=== PATIENT | female | born 1965 | race Caucasian/White ===

== ENCOUNTER → 2018-01-15 | Outpatient (CLI) | payer OTHER ==
--- NOTE | 2018-01-20 09:54 | MM ---
Reason for exam: screening (asymptomatic). Last mammogram was performed 18 years and 9 months ago. History: Patient is postmenopausal. Physical Findings: A clinical breast exam by your physician is recommended on an annual basis and results should be correlated with mammographic findings. MG Screening Mammo w CAD Bilateral CC and MLO view(s) were taken. No prior studies available for comparison. The breast tissue is almost entirely fat. Bilateral nipple rings. No significant changes when compared with prior studies. ASSESSMENT: Benign, BI-RAD 2 RECOMMENDATION: Routine screening mammogram of both breasts in 1 year.
== END | disposition home or self-care (01) ==
LOC: RADMAMWWP 13:08
PROVIDERS: ATTEND Family Medicine
DX: Z12.31 Encounter for screening mammogram for malignant neoplasm of breast (principal)
CPT/HCPCS: 77067

== ENCOUNTER → 2018-06-23 | Outpatient (CLI) | payer OTHER ==
--- NOTE | 2018-06-23 10:41 | MR ---
EXAMINATION TYPE: MR lumbar spine wo con DATE OF EXAM: 06/23/2018 COMPARISON: None HISTORY: Low back pain TECHNIQUE: Multiplanar, multisequence images of the lumbar spine were acquired. FINDINGS: There is a grade 1 anterolisthesis of L4 on L5. The remainder of the vertebral bodies maint ain normal alignment. Bone marrow signal is within normal limits other than degenerative endplate stanislav nges of the superior endplate of L2 (Modic type II) and a T1/T2 hyperintense small vertebral body hem angioma of L4, benign finding. Conus medullaris is unremarkable terminating at L1. Multilevel disc de siccation is seen. Multifocal left-sided cortical renal retraction and thickening is seen, likely seq uela of prior injury. Multiple left sacral perineural cysts are incidentally seen. L1-L2: Disc desiccation is seen without focal disc bulge or herniation. No neural foraminal narrowing or spinal canal stenosis. L2-L3: Disc desiccation is seen without focal disc bulge or herniation. No neural foraminal narrowing or spinal canal stenosis. L3-L4: There is a broad-based disc bulge and mild facet arthropathy resulting in minimal bilateral ne ural foraminal narrowing. L4-L5: There is disc uncovering and a broad-based disc bulge that is right eccentric resulting in mil d to moderate right neuroforaminal narrowing. No significant spinal canal stenosis or left neural for aminal narrowing. Facet arthropathy is seen at this level contributing to the above findings. L5-S1: There is a left foraminal disc herniation/protrusion moderately narrowing the left neural fora men and abutting the exiting L5 nerve root. There is no significant right neural foraminal narrowing or spinal canal stenosis. Right paracentral annular tear is also seen. IMPRESSION: 1. Left foraminal disc herniation at L5-S1 moderately narrowing the left neural foramen and abutting the exiting L5 nerve root. 2. Grade 1 anterolisthesis of L4 on L5 in combination with a right eccentric disc bulge create mild t o moderate right neural foraminal narrowing. 3. Mild multilevel degenerative disc disease in the remainder the lumbar spine with neural foraminal narrowing as described above.
== END | disposition home or self-care (01) ==
LOC: RADMRIMAIN 09:39
PROVIDERS: ATTEND Family Medicine
DX: M99.73 Connective tissue and disc stenosis of intervertebral foramina of lumbar region (principal); M51.27 Other intervertebral disc displacement, lumbosacral region; M43.16 Spondylolisthesis, lumbar region; M51.36 Other intervertebral disc degeneration, lumbar region
CPT/HCPCS: 72148

== ENCOUNTER → 2018-10-29 | Outpatient (CLI) | payer OTHER ==
--- NOTE | 2018-10-29 15:52 | CT ---
EXAMINATION TYPE: CT chest w con DATE OF EXAM: 10/29/2018 COMPARISON: None HISTORY: Lt Hilar Density CT DLP: 656 mGycm Automated exposure control for dose reduction was used. CONTRAST: CT scan of the chest is performed with IV Contrast, patient injected with 100 mL of Isovue 300. FINDINGS: LUNGS: The lungs are grossly clear, there is no concerning parenchymal mass or nodule identified. T here is no pleural effusion or pneumothorax seen. The tracheobronchial tree is patent. MEDIASTINUM: Subcentimeter AP window lymph node. Precarinal lymph node measures 1 cm in short axis. S everal subcentimeter hilar lymph nodes measuring 8.6 mm on the left and approximately 8 mm on the rig ht. Thoracic aorta is of normal caliber. The heart is not enlarged. UPPER ABDOMEN: Focal parenchymal scarring left kidney. Fatty liver. Cholecystectomy clips. Small hiat al hernia. OTHER: No additional significant abnormality is seen. IMPRESSION: 1. No evidence for pulmonary mass or infiltrate at this time. Subcentimeter lymph nodes as discussed.
== END | disposition home or self-care (01) ==
LOC: RADCTMAIN 14:08
PROVIDERS: ATTEND Family Medicine
DX: R91.8 Other nonspecific abnormal finding of lung field (principal)
CPT/HCPCS: 71260; Q9967

== ENCOUNTER → 2019-06-11 | Outpatient (CLI) | payer OTHER ==
--- NOTE | 2019-06-15 08:35 | MM ---
Reason for exam: screening (asymptomatic). Last mammogram was performed 1 year and 5 months ago. History: Patient is postmenopausal. Physical Findings: A clinical breast exam by your physician is recommended on an annual basis and results should be correlated with mammographic findings. MG Screening Mammo w CAD Bilateral CC and MLO view(s) were taken. Prior study comparison: January 15, 2018, bilateral MG screening mammo w CAD. April 13, 1999, bilateral screening mammogram. There are scattered fibroglandular densities. Bilateral nipple rings. No significant changes when compared with prior studies. ASSESSMENT: Negative, BI-RAD 1 RECOMMENDATION: Routine screening mammogram of both breasts in 1 year.
== END | disposition home or self-care (01) ==
LOC: RADMAMWWP 16:37
PROVIDERS: ATTEND Family Medicine
DX: Z12.31 Encounter for screening mammogram for malignant neoplasm of breast (principal)
CPT/HCPCS: 77067

== ENCOUNTER → 2022-03-26 | Outpatient (CLI) | payer OTHER ==
--- NOTE | 2022-03-26 15:17 | XR ---
EXAMINATION TYPE: XR Hip Complete LT DATE OF EXAM: 03/26/2022 CLINICAL HISTORY: pain TECHNIQUE: AP and frogleg views of the left hip are obtained. COMPARISON: None. FINDINGS: There is no acute fracture/dislocation evident. The joint space appears within normal li mits. The overlying soft tissue appears unremarkable. IMPRESSION: 1. There is no acute fracture or dislocation.ICD 10 NO FRACTURE, INITIAL EVALUATION
== END | disposition home or self-care (01) ==
LOC: RADXRMAIN 14:37
PROVIDERS: ATTEND Internal Medicine
DX: M25.552 Pain in left hip (principal)
CPT/HCPCS: 73502

== ENCOUNTER → 2022-04-10 | Outpatient (CLI) | payer OTHER ==
--- NOTE | 2022-04-10 21:30 | US ---
EXAMINATION TYPE: US venous doppler duplex LE LT DATE OF EXAM: 04/10/2022 2:18 PM COMPARISON: NONE CLINICAL HISTORY: 57-year-old female M79.662 PAIN IN L LEG,R22.42 SWELLING/MASS. Left leg pain x 1 mo nth, patient on blood thinners SIDE PERFORMED: Left TECHNIQUE: The lower extremity deep venous system is examined utilizing real time linear array sonog sarah with graded compression, doppler sonography and color-flow sonography. FINDINGS: VESSELS IMAGED: Common Femoral Vein Deep Femoral Vein Greater Saphenous Vein * Femoral Vein Popliteal Vein Small Saphenous Vein * Proximal Calf Veins (* superficial vessels) Left Leg: Appears negative for DVT IMPRESSION: No evidence for DVT within the left lower extremity imaged from the groin to the upper calf.
== END | disposition home or self-care (01) ==
LOC: RADUSWWP 13:45
PROVIDERS: ATTEND Internal Medicine
DX: R22.42 Localized swelling, mass and lump, left lower limb (principal); Z79.01 Long term (current) use of anticoagulants

== ENCOUNTER → 2022-10-31 | Outpatient (CLI) | payer OTHER ==
--- NOTE | 2022-11-01 19:21 | MM ---
Reason for Exam: Screening (asymptomatic). Last mammogram was performed 3 year(s) and 4 month(s) ago. Patient History: Menarche at age 11. First Full-Term at age 23. Hysterectomy at age 37. Postmenopausal. Patient has history of breast feeding. Risk Values: Kathleen 5 year model risk: 1.2%. NCI Lifetime model risk: 6.9%. Prior Study Comparison: 04/13/1999 Bilateral Screening Mammogram, [facility]. 01/15/2018 Bilateral Screening Mammogram, [facility]. 06/11/2019 Bilateral Screening Mammogram, [facility]. Tissue Density: The breast tissue is almost entirely fat. Findings: Analyzed By CAD. There is no suspicious group of microcalcifications or new suspicious mass in either breast. Overall Assessment: Negative, BI-RAD 1 Management: Screening Mammogram of both breasts in 1 year. 1. Patient should continue monthly self breast exams. 2. A clinical breast exam by your physician is recommended on an annual basis. 3. This exam should not preclude additional follow-up of suspicious palpable abnormalities. Electronically signed and approved by: Rebecca Del Cid M.D. Radiologist
== END | disposition home or self-care (01) ==
LOC: RADMAMWWP 15:49
PROVIDERS: ATTEND Family Medicine
DX: Z12.31 Encounter for screening mammogram for malignant neoplasm of breast (principal); Z78.0 Asymptomatic menopausal state
CPT/HCPCS: 77063; 77067

== ENCOUNTER 2022-11-12 18:35 | Emergency (ER) | payer OTHER ==
[2022-11-12] MEDS ORDERED: LORazepam 2 MG/ML INJ IV STA (18:37)
[2022-11-12 18:46] VITALS: TEMP 97.9
[2022-11-12] MEDS ORDERED: ASPIRIN 81 MG PO STA (18:57)
[2022-11-12] MEDS ORDERED: ONDANSETRON 4 MG/2 ML VIAL IVP STA (18:58)
[2022-11-12 19:22] LABS: Basophils # (A) 0.1 k/uL (0-0.2); Basophils % (A) 1 %; Eosinophils # (A) 0.1 k/uL (0-0.7); Eosinophils % (A) 2 %; HCT 44.8 % (34.0-46.0); HGB 15.8 gm/dL (11.4-16.0); Lymphocytes # (A) 2.2 k/uL (1.0-4.8); Lymphocytes % (A) 36 %; MCH 32.3 pg (25.0-35.0); MCHC 35.3 g/dL (31.0-37.0); MCV 91.4 fL (80.0-100.0); Mean Platelet Volume 10.3; Monocytes # (A) 0.4 k/uL (0-1.0); Monocytes % (A) 6 %; Neutrophils # (A) 3.2 k/uL (1.3-7.7); Neutrophils % (A) 52 %; Platelet Count 195 k/uL (150-450); RDW 12.4 % (11.5-15.5); WBC 6.1 k/uL (3.8-10.6)
[2022-11-12] MEDS ORDERED: ACETAMINOPHEN TAB 500 MG TAB PO STA (19:27)
[2022-11-12 19:31] LABS: Albumin 4.1 g/dL (3.5-5.0); Calcium 9.2 mg/dL (8.4-10.2); Magnesium 1.8 mg/dL (1.6-2.3); Potassium 3.8 mmol/L (3.5-5.1); Total Protein 7.1 g/dL (6.3-8.2)
[2022-11-12 19:33] LABS: INR 1.6 (<1.2); Partial Thromboplastin Time 30.4 sec (22.0-30.0); Prothrombin Time 15.8 sec (9.0-12.0)
[2022-11-12 19:37] VITALS: BP 157/94; PULSE 73; RESP 18
--- NOTE | 2022-11-12 19:43 | XR ---
EXAMINATION TYPE: XR chest 2V DATE OF EXAM: 11/12/2022 7:22 PM COMPARISON: CT chest 10/21/2013 TECHNIQUE: XR chest 2V Frontal and lateral views of the chest. CLINICAL INDICATION:Female, 57 years old with history of Chest Pain; FINDINGS: Low penetration film. Lungs/Pleura: There is no evidence of pleural effusion, focal consolidation, or pneumothorax. Pulmonary vascularity: Unremarkable. Heart/mediastinum: Cardiomediastinal silhouette is unremarkable. Musculoskeletal: No acute osseous pathology. IMPRESSION: No acute cardiopulmonary disease/process.
--- NOTE | 2022-11-12 20:52 | ED ---
General Adult HPI - General Chief complaint: Chest Pain Stated complaint: Chest Pain Time Seen by Provider: 11/12/22 18:40 Source: EMS, RN notes reviewed, old records reviewed Mode of arrival: EMS Limitations: no limitations - History of Present Illness Initial comments: Patient is a 57-year-old female with past medical history remarkable for atrial fibrillation, hypertension on Coumadin who presents emergency Department complaining of chest pain. It occurred approximately an hour and a half prior to arrival. Substernal and left-sided. She thought it would go away on its own but it did not which/called EMS. Discussed a sharp, achy pain. Did not radiate anywhere else. Denies any other associated symptoms including shortness of breath, abdominal pain, nausea, vomiting. States she is not diaphoretic. When EMS arrived, they discovered that she was tachycardic in the 160s to 180s. There was uncertain if it was A. fib or SVT and they did attempt vagal maneuvers which converted the patient to normal sinus rhythm. Patient's symptoms reso lved. She has been asymptomatic since. She currently denies any shortness of breath, chest pain but does endorse slight nausea. Denies any diarrhea. Denies any sick contacts. Denies any lower extremity edema. States she is compliant with medications. Presents for further evaluation at this time. - Related Data Home Medications Medication Instructions Recorded Confirmed Flecainide [Tambocor] 50 mg PO BID 11/12/22 11/12/22 Metoprolol Tartrate [Lopressor] 100 mg PO BID 11/12/22 11/12/22 Warfarin [Coumadin] 7.5 mg PO PC-SUPPER 11/12/22 11/12/22 Allergies Allergy/AdvReac Type Severity Reaction Status Date / Time No Known Allergies Allergy Unverified 11/12/22 19:14 Review of Systems ROS Statement: Those systems with pertinent positive or pertinent negative responses have been documented in the HPI. Review of Systems: CONST: Denies fever EYES: Denies blurry vision ENT: Denies nasal congestion C/V: Denies Chest pain RESP: Denies shortness of breath GI: Denies abdominal pain : Denies dysuria SKIN: Denies rash. MSK: Denies joint pain. NEURO: Denies headache ROS Other: All systems not noted in ROS Statement are negative. Past Medical History Past Medical History: Atrial Fibrillation, Hypertension History of Any Multi-Drug Resistant Organisms: None Reported Past Surgical History: Cholecystectomy, Hysterectomy, Tonsillectomy Smoking Status: Former smoker Past Alcohol Use History: None Reported Past Drug Use History: None Reported General Exam - General Exam Comments Initial Comments: General: Appears in no acute distress. HEAD: Normal with no signs of head trauma. EYES: PERRLA, EOMI, conjunctiva normal, no discharge. ENT: Hearing grossly intact, normal oropharynx. RESPIRATORY: Clear breath sounds bilaterally. No wheezes, rales, or rhonchi. C/V: Regular rate and rhythm. S1 and S2 auscultated, no edema, peripheral pulses 2+ and intact throughout ABD: Abd is soft, nontender, nondistended EXT: Normal range of motion, no obvious deformity SKIN: No rashes or lesions observed on exposed skin. NEURO: Alert and oriented 4. Limitations: no limitations Course Vital Signs 11/12/22 11/12/22 18:38 19:35 Temperature 97.9 F Pulse Rate 74 73 Respiratory 20 18 Rate Blood Pressure 164/107 157/94 O2 Sat by Pulse 95 95 Oximetry Medical Decision Making - Medical Decision Making Based on the patient's presentation and physical exam, I'm concerned for possible cardiopulmonary etiology for her current symptoms. Cannot rule out an episode of atrial fibrillation or SVT prior to arrival. ACS at this time either. She currently is relatively asymptomatic. I did discuss this with the patient and she was in agreement with the workup. We will obtain cardiac labs, EKG, chest x-ray. She'll be given 324 millions of aspirin in addition to 4 mg of Zofran. She was in agreement with this plan. Vital signs are within acceptable limits. She appears to be in sinus rhythm at this time. EKG shows no signs of acute ischemia. Normal sinus rhythm. No prior EKG for comparison. Chest x-ray as interpreted by myself reveals no evidence of acute cardio pulmonary process. No infiltrate. Patient's laboratory studies are remarkable for an undetectable troponin. Mildly subtherapeutic INR of 1.6. Remainder the labs are unremarkable. Covid is negative. On reevaluation, patient remains asymptomatic. We did discuss her workup. Patient's heart score is moderate at 4. I did recommend that we admit her to the hospital for cardiac monitoring. Patient declines admission at this time. She will sign out AGAINST MEDICAL ADVICE.The patient was apprised of the potential risks of leaving the hospital AGAINST MEDICAL ADVICE, including serious complications, permanent disability, and . At the time of my interview the patient, the patient was alert, oriented, and capable. Patient signed AMA form, which was witnessed and signed by nursing staff, and placed in patient's chart. I urged the patient to return to the hospital as soon as possible to complete evaluation and treatment. - Lab Data Result diagrams: 11/12/22 19:03 11/12/22 19:03 Lab Results 11/12/22 11/12/22 11/12/22 Range/Units 19: 19: 19:03 WBC 6.1 (3.8-10.6) k/uL RBC 4.90 (3.80-5.40) m/uL Hgb 15.8 (11.4-16.0) gm/dL Hct 44.8 (34.0-46.0) % MCV 91.4 (80.0-100.0) fL MCH 32.3 (25.0-35.0) pg MCHC 35.3 (31.0-37.0) g/dL RDW 12.4 (11.5-15.5) % Plt Count 195 (150-450) k/uL MPV 10.3 Neutrophils % 52 % Lymphocytes % 36 % Monocytes % 6 % Eosinophils % 2 % Basophils % 1 % Neutrophils # 3.2 (1.3-7.7) k/uL Lymphocytes # 2.2 (1.0-4.8) k/uL Monocytes # 0.4 (0-1.0) k/uL Eosinophils # 0.1 (0-0.7) k/uL Basophils # 0.1 (0-0.2) k/uL PT 15.8 H (9.0-12.0) sec INR 1.6 H (<1.2) APTT 30.4 H (22.0-30.0) sec Sodium 141 (137-145) mmol/L Potassium 3.8 (3.5-5.1) mmol/L Chloride 109 H (98-107) mmol/L Carbon Dioxide 24 (22-30) mmol/L Anion Gap 8 mmol/L BUN 24 H (7-17) mg/dL Creatinine 1.00 (0.52-1.04) mg/dL Est GFR (CKD-EPI)AfAm 72 (>60 ml/min/1.73 sqM) Est GFR (CKD-EPI)NonAf 63 (>60 ml/min/1.73 sqM) Glucose 113 H (74-99) mg/dL Calcium 9.2 (8.4-10.2) mg/dL Magnesium 1.8 (1.6-2.3) mg/dL Total Bilirubin 1.0 (0.2-1.3) mg/dL AST 34 (14-36) U/L ALT 49 H (4-34) U/L Alkaline Phosphatase 95 (38-126) U/L Troponin I (0.000-0.034) ng/mL Total Protein 7.1 (6.3-8.2) g/dL Albumin 4.1 (3.5-5.0) g/dL Amylase 49 (30-110) U/L Lipase 133 (23-300) U/L Coronavirus (PCR) (Not Detectd) 11/12/22 11/12/22 Range/Units 19:03 19:29 WBC (3.8-10.6) k/uL RBC (3.80-5.40) m/uL Hgb (11.4-16.0) gm/dL Hct (34.0-46.0) % MCV (80.0-100.0) fL MCH (25.0-35.0) pg MCHC (31.0-37.0) g/dL RDW (11.5-15.5) % Plt Count (150-450) k/uL MPV Neutrophils % % Lymphocytes % % Monocytes % % Eosinophils % % Basophils % % Neutrophils # (1.3-7.7) k/uL Lymphocytes # (1.0-4.8) k/uL Monocytes # (0-1.0) k/uL Eosinophils # (0-0.7) k/uL Basophils # (0-0.2) k/uL PT (9.0-12.0) sec INR (<1.2) APTT (22.0-30.0) sec Sodium (137-145) mmol/L Potassium (3.5-5.1) mmol/L Chloride (98-107) mmol/L Carbon Dioxide (22-30) mmol/L Anion Gap mmol/L BUN (7-17) mg/dL Creatinine (0.52-1.04) mg/dL Est GFR (CKD-EPI)AfAm (>60 ml/min/1.73 sqM) Est GFR (CKD-EPI)NonAf (>60 ml/min/1.73 sqM) Glucose (74-99) mg/dL Calcium (8.4-10.2) mg/dL Magnesium (1.6-2.3) mg/dL Total Bilirubin (0.2-1.3) mg/dL AST (14-36) U/L ALT (4-34) U/L Alkaline Phosphatase (38-126) U/L Troponin I <0.012 (0.000-0.034) ng/mL Total Protein (6.3-8.2) g/dL Albumin (3.5-5.0) g/dL Amylase (30-110) U/L Lipase (23-300) U/L Coronavirus (PCR) Not Detected (Not Detectd) - EKG Data -: EKG Interpreted by Me EKG Comments: 12-lead Electrocardiogram Interpretation Note EKG was reviewed and interpreted by myself. 12-lead ECG performed at 1843 is interpreted by me as revealing normal sinus rhythm at a rate of 71 beats per minute. Left axis deviation. MN interval is 193 ms, QRS duration is 141 ms, QTc is 452 ms.. There were no ST or T wave abnormalities to suggest myocardial ischemia or injury. R wave progression across the precordium was satisfactory. By my interpretation this EKG is non-diagnostic for acute ischemia. No prior EKG for comparison. Disposition Clinical Impression: Chest pain, Tachycardia, Subtherapeutic international normalized ratio (INR) Disposition: Left Against Medical Advice Condition: Undetermined Is patient prescribed a controlled substance at d/c from ED?: No Referrals: Golden Lockett MD [Primary Care Provider] - 1-2 days Time of Disposition: 20:40
== END 2022-11-12 21:08 | disposition left against medical advice (07) ==
LOC: EC 18:35
DX: R07.89 Other chest pain (principal); R00.0 Tachycardia, unspecified; R79.1 Abnormal coagulation profile; I10 Essential (primary) hypertension; I48.91 Unspecified atrial fibrillation; Z53.29 Procedure and treatment not carried out because of patient's decision for other reasons; Z20.822 Contact with and (suspected) exposure to COVID-19; Z90.710 Acquired absence of both cervix and uterus; Z90.49 Acquired absence of other specified parts of digestive tract; Z79.01 Long term (current) use of anticoagulants; Z79.899 Other long term (current) drug therapy; Z87.891 Personal history of nicotine dependence
CPT/HCPCS: 36415; 71046; 80053; 82150; 83690; 83735; 84484; 85025; 85610; 85730; 87635; 93005; 99285

== ENCOUNTER 2022-12-08 18:39 | Inpatient (IN) | payer OTHER ==
[2022-12-08] MEDS ORDERED: HEPARIN SODIUM 1,000 UN/ML (10ML VL) ONE (20:06)
[2022-12-08] MEDS ORDERED: fentaNYL (PF) 50 MCG/ML 2 ML AMP ONE (20:06)
[2022-12-08] MEDS ORDERED: ASPIRIN 325 MG TAB ONE (20:13)
[2022-12-08] MEDS ORDERED: ASPIRIN 325 MG TAB PO ONE (20:15)
[2022-12-08] MEDS ORDERED: fentaNYL (PF) 50 MCG/ML 2 ML AMP IV ONE (20:18)
[2022-12-08] MEDS ORDERED: LIDOCAINE 1% INJ 10MG/ML (5 ML VIAL-PF) SQ ONE (20:20)
[2022-12-08] MEDS ORDERED: SODIUM CHLORIDE 0.9% 1,000 ML IV ONE (20:22)
[2022-12-08] MEDS ORDERED: VERAPAMIL SYRINGE (5 MG/10 ML) INTRAARTER ONE (20:24)
[2022-12-08] MEDS ORDERED: HEPARIN SODIUM 1,000 UN/ML (10ML VL) IV ONE (20:31)
[2022-12-08] MEDS ORDERED: MIDAZOLAM 2 MG/2 ML VIAL IV ONE (20:32)
[2022-12-08] MEDS ORDERED: CLOPIDOGREL 75 MG TAB ONE (20:39)
[2022-12-08] MEDS ORDERED: CLOPIDOGREL 75 MG TAB PO ONE (20:41)
[2022-12-08] MEDS ORDERED: IOPAMIDOL-370 125ML BTL INJ ONE (20:42)
[2022-12-08] MEDS ORDERED: RX INFO: IV CONTRAST WAS GIVEN 1 EACH MISC MISCELLANE PRN (20:48)
--- NOTE | 2022-12-08 20:56 | P.CARDCATH ---
Date of Procedure: 12/08/22 Description of Procedure: Cardiac Catheterization: The patient is a 57-year-old female with known history of paroxysmal atrial fibrillation, hypertension who presented to [facility] with chest and jaw discomfort. She had troponin elevation but no significant EKG changes. She was evaluated by Dr. Serrato. Recommendations were made regarding cardiac catheterization, the risks and the complications were discussed with the patient who is in full understanding and agreement. Procedure Description: Patient was brought to cath lab tech in fasting semi-sedated state after receiving Fentanyl and Benadryl achieiving moderate conscious sedated state. Using Xylocaine Anesthesia and Seldinger technique, a 6-Zimbabwean sheath was introduced in the right radial artery . Subsequently, selective coronary angiography was performed using a 5-Zimbabwean 3.5 bend Modesta catheter. Multiple views of the coronary artery including hemiaxial views were obtained. The 5-Zimbabwean pigtail catheter was used to cross the aortic valve and left ventriculogram and LVEDP was calculated. Following that, catheter and sheath were removed. Hemostasis was obtained with deployment of TR band . There was no immediate complication. Patient was returned to room in stable condition. Of note, the patient received a total of 5000 units of intravenous heparin as well as intra-arterial verapamil. Findings: Left main: This is a large size vessel, bifurcating into LAD and left circumflex, left main has no evidence of high-grade stenosis LAD: This is a large size vessel, reaching to the apex, giving rise to 2 diagonal branch, the LAD and its branches have no evidence of high-grade stenosis Left circumflex: This is a large nondominant vessel giving rise to 3 obtuse marginal branch, the first obtuse margin branch has a long tubular area of 99% stenosis with the appearance highly suggestive of spontaneous coronary artery dissection, the rest of the vessel has no high-grade stenosis RCA: This is a large dominant vessel, bifurcating into PDA and PLV, the RCA and its branches have no evidence of high-grade stenosis Left Ventriculogram: Performed in the 30 SAMI view revealed mild mid anterior wall hypokinesis, ejection fraction 55-60%, there was catheter-induced mitral regurgitation Hemodynamics: There was no gradient across the aortic valve, LVEDP was 14-16 mmHg Conclusion: 1. Significant stenosis in the first obtuse marginal branch, highly suggestive of spontaneous coronary artery dissection 2. Right dominance 3. Preserved systolic function with mild hypokinesis Recommendations: I have recommended to maximize medical therapy and clinical observation in view of the appearance of her anatomy. The findings and the recommendations were discussed with the patient and the family and they were in full understanding and agreement. Duration of sedation is 23 minutes.
[2022-12-08] MEDS ORDERED: SODIUM CHLORIDE 0.9% 1,000 ML IV SCH (21:00)
[2022-12-08 21:08] LABS: Glucose,Whole Blood 109 mg/dL (70-110)
[2022-12-08] MEDS: ISOSORBIDE MONONITRATE ER 30 MG TAB.ER.24H PO SCH (21:13)
[2022-12-08] MEDS: METOPROLOL TARTRATE 50 MG TAB PO SCH (22:08)
[2022-12-09] MEDS ORDERED: ACETAMINOPHEN TAB 325 MG TAB PO STA (04:24)
[2022-12-09 06:22] LABS: African American GFR (CKD) >90 (>60 ml/min/1.73 sqM); Anion Gap 4 mmol/L; Blood Urea Nitrogen 14 mg/dL (7-17); Calcium 8.3 mg/dL (8.4-10.2); Carbon Dioxide 26 mmol/L (22-30); Chloride 108 mmol/L (98-107); Glucose 115 mg/dL (74-99); Non-African American GFR(CKD) 88 (>60 ml/min/1.73 sqM); Potassium 3.9 mmol/L (3.5-5.1); Sodium 138 mmol/L (137-145)
[2022-12-09 06:38] LABS: INR 1.3 (<1.2); Prothrombin Time 13.3 sec (9.0-12.0)
[2022-12-09] MEDS: ISOSORBIDE MONONITRATE ER 30 MG TAB.ER.24H PO SCH (08:17)
[2022-12-09] MEDS: ATORVASTATIN 40 MG TAB PO SCH (08:17)
[2022-12-09] MEDS: CLOPIDOGREL 75 MG TAB PO SCH (08:17)
[2022-12-09] MEDS: LOSARTAN 50 MG TAB PO SCH (08:17)
[2022-12-09] MEDS: METOPROLOL TARTRATE 50 MG TAB PO SCH ×2 (08:21→20:07)
[2022-12-09] MEDS ORDERED: ASPIRIN 81 MG PO SCH (09:00)
[2022-12-09 10:37] LABS: Chol/HDL Ratio 4.87 Ratio; LDL Cholesterol,Calculated 107.7 mg/dL (0.0-131.0)
--- NOTE | 2022-12-09 11:59 | P.PN ---
Subjective Progress Note Date: 12/09/22 The patient is a 57-year-old female who presented to [facility] with acute onset of chest discomfort. She was subsequently transferred to [facility] for coronary angiogram. She was found to have a long tubular area of 99% stenosis in the OM1, which was highly suggestive of spontaneous coronary artery dissection. No other high-grade stenosis noted. EF is estimated at 55-60%. The patient was interviewed and examined lying comfortably in bed. She states she's not had any chest discomfort overnight. No difficulty breathing. She has yet to get up and ambulate around the room. GENERAL: Well-appearing, well-nourished and in no acute distress. NECK: Supple without JVD or thyromegaly. LUNGS: Breath sounds clear to auscultation bilaterally. Respiration equal and unlabored. No wheezes, rales or rhonchi. HEART: Regular rate and rhythm without murmurs, rubs or gallops. S1 and S2 heard. EXTREMITIES: Normal range of motion, no edema. No clubbing or cyanosis. Peripheral pulses intact and strong. Right radial site shows no hematoma or significant bruising VITALS: Blood pressure 123/65, SpO2 92% on room air, respiratory rate 18, pulse 63 TELEMETRY: Sinus rhythm overnight LABS: Sodium 138, potassium 3.9, BUN 14, creatinine 0.75, triglycerides 304, LDL 107, HDL 43 IMPRESSION: Spontaneous coronary artery dissection Paroxysmal atrial fibrillation Hypertension Hyperlipidemia Diabetes mellitus PLAN: Recommend antiplatelet therapy in addition to statins Start Eliquis 2-1/2 mg twice daily Echocardiogram tomorrow Patient may be transferred to [facility]. I am dictating on behalf of Dr Cuauhtemoc Serrato's history/physical and assessment/plan. Objective - Vital Signs Vital signs: Vital Signs Temp 97.6 F 12/09/22 08:00 Pulse 63 12/09/22 10:00 Resp 18 12/09/22 10:00 BP 123/65 12/09/22 10:00 Pulse Ox 92 L 12/09/22 10:00 FiO2 Intake & Output 12/08/22 12/09/22 12/09/22 18:59 06:59 18:59 Intake Total 950 75 Output Total 950 700 Balance 0 -625 Weight 108.5 kg Intake: IV 200 Intake, IV Titration 750 75 Amount Sodium Chloride 0.9% 1, 750 75 000 ml @ 75 mls/hr IV . [id number] [facility] Rx#:[id number] Output: Urine 950 700 Other: Voiding Method Bedside Commode Bedside Commode # Voids 1 1 - Labs CBC & Chem 7: 12/09/22 05:24 Labs: Abnormal Lab Results - Last 24 Hours (Table) 12/08/22 12/08/22 12/09/22 Range/Units 21:21 21:21 05:24 PT (9.0-12.0) sec INR (<1.2) Chloride 108 H (98-107) mmol/L Glucose 115 H (74-99) mg/dL Calcium 8.3 L (8.4-10.2) mg/dL Troponin I 1.260 H* (0.000-0.034) ng/mL Triglycerides 304.00 H (0.00-149.00) mg/dL Cholesterol 212.00 H (0.00-200.00) mg/dL VLDL Cholesterol, Calc 60.80 H (5.00-40.00) mg/dL 12/09/22 Range/Units 05:24 PT 13.3 H (9.0-12.0) sec INR 1.3 H (<1.2) Chloride (98-107) mmol/L Glucose (74-99) mg/dL Calcium (8.4-10.2) mg/dL Troponin I (0.000-0.034) ng/mL Triglycerides (0.00-149.00) mg/dL Cholesterol (0.00-200.00) mg/dL VLDL Cholesterol, Calc (5.00-40.00) mg/dL
[2022-12-09] MEDS: BUTALB/APAP/CAFF 50-325-40MG TAB PO PRN (15:11)
[2022-12-09] MEDS ORDERED: NON FORMULARY DRUG (Metoprolol Tartrate [Lopressor] 100 MG Tablet) PO SCH (21:00)
[2022-12-10] MEDS: ISOSORBIDE MONONITRATE ER 30 MG TAB.ER.24H PO SCH (08:12)
[2022-12-10] MEDS: APIXABAN 2.5 MG TABLET PO SCH ×2 (08:12→21:02)
[2022-12-10] MEDS: CLOPIDOGREL 75 MG TAB PO SCH (08:12)
[2022-12-10] MEDS: ATORVASTATIN 40 MG TAB PO SCH (08:12)
[2022-12-10] MEDS: METOPROLOL TARTRATE 50 MG TAB PO SCH ×2 (08:13→21:02)
[2022-12-10] MEDS: LOSARTAN 50 MG TAB PO SCH (08:13)
[2022-12-10] MEDS ORDERED: LOSARTAN 50 MG TAB PO STA (10:41)
--- NOTE | 2022-12-10 11:20 | CA ---
Transthoracic Echo Report Name: Anabell Wilkinson Age: 57 Gender: F : 1965 Exam Date: 12/10/2022 09:02 Exam Location: [facility] Ht (in): 65 Wt (lb): 238 Ordering Physician: David Romano DO Attending/Referring Phys: [id number], Irwin Manual Lathe Machinist Sayra Otoole RDCS Procedure CPT: Indications: SCAD Cardiac Hx: Technical Quality: Technically difficult study Contrast 1: Lumason Total Dose (mL): 4 Contrast 2: Total Dose (mL): MEASUREMENTS (Male / Female) Normal Values 2D ECHO LV Diastolic Diameter PLAX 3.8 cm 4.2 - 5.9 / 3.9 - 5.3 cm LV Systolic Diameter PLAX 3.6 cm IVS Diastolic Thickness 1.2 cm 0.6 - 1.0 / 0.6 - 0.9 cm LVPW Diastolic Thickness 1.8 cm 0.6 - 1.0 / 0.6 - 0.9 cm LV Relative Wall Thickness 0.8 RV Internal Dim ED PLAX 3.0 cm LA Systolic Diameter LX 3.7 cm 3.0 - 4.0 / 2.7 - 3.8 cm LA Volume 62.1 cm??? 18 - 58 / 22 - 52 cm??? M-MODE Aortic Root Diameter MM 3.3 cm LA Systolic Diameter MM 3.4 cm LA Ao Ratio MM 1.1 MV E Point Septal Separation 0.1 cm AV Cusp Separation MM 2.0 cm DOPPLER MV Area PHT 2.1 cm??? Mitral E Point Velocity 36.0 cm/s Mitral A Point Velocity 68.9 cm/s Mitral E to A Ratio 0.5 MV Deceleration Time 355.9 ms MV E' Velocity 5.4 cm/s Mitral E to MV E' Ratio 6.7 TR Peak Velocity 234.7 cm/s TR Peak Gradient 22.0 mmHg Right Ventricular Systolic Press 26.4 mmHg FINDINGS Left Ventricle Mildly increased septal wall thickness. Left ventricular cavity size normal. Left ventricular ejection fraction is estimated at 55%. Right Ventricle Normal right ventricular size and function. Right ventricular systolic pressure within normal limits. Right Atrium Normal right atrial size. Left Atrium Mildly increased left atrial volume. Mitral Valve Structurally normal mitral valve. Mild mitral regurgitation. Aortic Valve Trileaflet aortic valve. Tricuspid Valve Structurally normal tricuspid valve. Mild tricuspid regurgitation. Pulmonic Valve Pulmonic valve not well visualized. Pericardium Echo free space anterior to the right ventricle likely represents a fat pad. Aorta Normal size aortic root and proximal ascending aorta. CONCLUSIONS Normal LV size and systolic function. No significant wall motion abnormality. Mild mitral and tricuspid insufficiency. Mild concentric LVH Previewed by: Dr. Victor M Jain MD (Electronically Signed) Final Date: 10 December 2022 11:19
[2022-12-10] MEDS ORDERED: amLODIPine 10 MG TAB PO SCH (21:00)
--- NOTE | 2022-12-10 22:25 | PN ---
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 This morning, she is doing well. Blood pressure is still poorly controlled. OBJECTIVE: NECK: There is no jugular venous distention. CHEST: Reveals good air entry bilaterally. HEART: Reveals first and second heart sounds. No gallop. No murmur. No rub. ABDOMEN: Soft. EXTREMITIES: Did not reveal any edema. Peripheral pulses are felt. The patient has a history of atrial fibrillation and is currently on Eliquis for the same. An echocardiogram has been done and shows normal LV systolic function and no wall motion abnormalities. ASSESSMENT: 1. 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 2. Hypertension. 3. Paroxysmal atrial fibrillation. PLAN: The patient will continue current medications. I will add amlodipine for better blood pressure control. Hopefully home tomorrow. MMODL / IJN: [id number] /
--- NOTE | 2022-12-11 00:17 | HP ---
HISTORY AND PHYSICAL CHIEF COMPLAINT: Chest pain. HISTORY OF PRESENT ILLNESS: This lady presented with chest pain and was found to have an NSTEMI. She was taken to the label sewer. REVIEW OF SYSTEMS: She has had no confusion, headaches, chest pain, palpitations, abdominal pain, nausea, vomiting, diarrhea, urinary complaints, etc. Past medical history, family history, and personal and social histories reveal that she has no allergies. MEDICATIONS: She is on, 1. Flecainide 50 mg twice a day. 2. Metoprolol 100 mg twice a day. 3. Coumadin 10 mg Saturday and . She has a history of hypertension, atrial fibrillation. She does not smoke or drink. PHYSICAL EXAMINATION: VITAL SIGNS: Blood pressure is 146/90 with a pulse of 78 and regular. Respirations were 35 and she is afebrile. GENERAL: She appeared to be well developed, well nourished, in no acute distress. SKIN: Color is normal. Skin is warm and dry. LYMPH NODES: Not enlarged. HEAD, EARS, EYES, NOSE, MOUTH AND THROAT: Normal. CHEST: Clear. CARDIAC: Demonstrates what sounds like regular sinus rhythm. ABDOMEN: Soft and nontender without any visceromegaly or masses. Bowel sounds are present. EXTREMITIES: Normal. NEUROLOGICAL: She is intact. ASSESSMENT: She is admitted to the hospital with diagnosis of: 1. Acute non ST-segment elevation myocardial infarction. 2. History of hypertension. 3. History of atrial fibrillation. PLAN: 1. Bedrest. 2. IV fluids. 3. Cardiology consult. MMODL / IJN: [id number] /
--- NOTE | 2022-12-11 02:23 | PN ---
PROGRESS NOTE DATE OF SERVICE: 12/10/2022 CHIEF COMPLAINT: NSTEMI. HISTORY OF PRESENT ILLNESS: This lady is doing fairly well. Her blood pressures have been high. REVIEW OF SYSTEMS: She denies any chest pain, palpitations, nausea, etc. PHYSICAL EXAMINATION: VITAL SIGNS: Blood pressure is elevated. CHEST: Clear. CARDIAC: Normal. ABDOMEN: Soft, nontender. IMPRESSION: 1. Hypertension. 2. Status post non ST-segment elevation myocardial infarction. PLAN: Progress activity and she will be moved out of ICU. MMODL / IJN: [id number] /
--- NOTE | 2022-12-11 03:10 | PN ---
PROGRESS NOTE DATE OF SERVICE: 12/09/2022 CHIEF COMPLAINT: Acute WI. HISTORY OF PRESENT ILLNESS: This lady is doing fairly well, but she is a little bit lethargic secondary to analgesics and lack of sleep. REVIEW OF SYSTEMS: She denies any chest pain. At the present time, her vital signs are normal and she has had no arrhythmias. PHYSICAL EXAMINATION: CHEST: Clear. CARDIAC: Normal. No murmurs or extra sounds. ABDOMEN: Soft, nontender. IMPRESSION: Status post non ST-elevation myocardial infarction. PLAN: Progress activity and diet until she can be moved out of the intensive care unit. MMODL / IJN: [id number] /
[2022-12-11] MEDS: CLOPIDOGREL 75 MG TAB PO SCH (08:26)
[2022-12-11] MEDS: ISOSORBIDE MONONITRATE ER 30 MG TAB.ER.24H PO SCH (08:26)
[2022-12-11] MEDS: METOPROLOL TARTRATE 50 MG TAB PO SCH (08:26)
[2022-12-11] MEDS: ATORVASTATIN 40 MG TAB PO SCH (08:26)
[2022-12-11] MEDS: APIXABAN 2.5 MG TABLET PO SCH (08:26)
[2022-12-11 08:31] VITALS: RESP 14
[2022-12-11] MEDS ORDERED: LOSARTAN 50 MG TAB PO SCH (09:00)
[2022-12-11 11:41] VITALS: BP 121/82; PULSE 72; TEMP 98.1
[2022-12-11] MEDS: BUTALB/APAP/CAFF 50-325-40MG TAB PO PRN (13:10)
--- NOTE | 2022-12-11 19:48 | PN ---
PROGRESS NOTE SUBJECTIVE: Anabell is a 57-year-old lady who was admitted to hospital with spontaneous dissection of the circumflex coronary artery, underwent cardiac catheterization and advised medical therapy. This morning, she is free of symptoms, ambulating without any problems. Blood pressure is well controlled. OBJECTIVE: GENERAL: Comfortable at rest. VITAL SIGNS: Stable. CHEST: Reveals good air entry bilaterally. HEART: Reveals first and second heart sounds. No gallop, no murmur. ABDOMEN: Soft. EXTREMITIES: Did not reveal any edema. Peripheral pulses are felt. ASSESSMENT: 1. Huy-ZE-etgmpte elevation myocardial infarction secondary to spontaneous dissection of the circumflex coronary artery. 2. History of paroxysmal atrial fibrillation. 3. Hypertension. PLAN: Patient is doing well, will continue current medications. Had an echocardiogram on this admission that revealed normal LV systolic function. She is stable for discharge and will follow up with Dr. Serrato. MMSAURABHL / TYRESEN: [id number] /
--- NOTE | 2022-12-13 01:30 | DS ---
DISCHARGE SUMMARY CHIEF COMPLAINT: Chest pain. HISTORY OF PRESENT ILLNESS AND PHYSICAL EXAMINATION: Details of this lady's history and physical can be found in the initial workup. LABORATORY STUDIES: While she is in the hospital, she had laboratory studies, details of which can be found in the laboratory section of her chart. COURSE IN THE HOSPITAL: After admission, she was placed on bedrest and taken to the botany laboratory assistant, where she was found to have a dissection of the circumflex, bleed. No stent was placed. Postoperatively, she did well. She is cleared by Cardiology to go home on the and she will go home on light activity and regular diet and she will follow up with Cardiology and in my office in several days. FINAL DIAGNOSES: 1. Acute non ST elevation myocardial infarction. 2. Coronary artery disease. 3. Hypertension. OPERATIONS: Cardiac cath. CONSULTATION: Cardiology. She is improved. MMODL / IJN: [id number] /
== END 2022-12-11 15:10 | disposition home or self-care (01) | DRG 280 ==
LOC: 2SICU 19:50
PROVIDERS: ADMIT Family Medicine; ATTEND Family Medicine
PROC: B215YZZ Fluoroscopy of Left Heart using Other Contrast (ICD-10-PCS; 2022-12-08)
PROC: 4A023N7 Measurement of Cardiac Sampling and Pressure, Left Heart, Percutaneous Approach (ICD-10-PCS; principal; 2022-12-08 20:02)
DX: I21.4 Non-ST elevation (NSTEMI) myocardial infarction (principal); I25.42 Coronary artery dissection; E11.9 Type 2 diabetes mellitus without complications; I10 Essential (primary) hypertension; I08.1 Rheumatic disorders of both mitral and tricuspid valves; I48.0 Paroxysmal atrial fibrillation; I25.10 Atherosclerotic heart disease of native coronary artery without angina pectoris; E78.5 Hyperlipidemia, unspecified; Z79.02 Long term (current) use of antithrombotics/antiplatelets; Z79.82 Long term (current) use of aspirin; Z79.01 Long term (current) use of anticoagulants; Z79.899 Other long term (current) drug therapy
CPT/HCPCS: 80048; 80061; 84484; 85610; 93306; 93458

== ENCOUNTER 2022-12-12 19:33 | Inpatient (IN) | payer OTHER ==
--- NOTE | 2022-12-12 20:15 | ED ---
General Adult HPI - General Chief complaint: Chest Pain Stated complaint: Chest Pain Time Seen by Provider: 12/12/22 19:50 Source: patient, EMS Mode of arrival: ambulatory Limitations: no limitations - History of Present Illness Initial comments: 57-year-old female with past history of A. fib, hypertension who presents to the emergency department reporting chest pain. She was recently hospitalized at [facility] last week. She had an elevated troponin was transferred here for her catheterization. They found that the patient had a spontaneous coronary artery dissection. She was placed on several new medications. States that she has been taking them as directed. She did began having some chest pain tonight when she was attempting to go to sleep. Describes it as a sharp pressure in her chest with radiation into her bilateral jaws. EMS did provide her with 4 baby aspirins. Reports that her symptoms are entirely resolved at this time. She denies ripping or tearing sensation to her back. No fevers, chills or cough. Does admit to nausea without vomiting. No other alleviating, precipitating or modifying factors - Related Data Previous Rx's Medication Instructions Recorded Apixaban [Eliquis] 2.5 mg PO BID #60 tab 12/11/22 Clopidogrel [Plavix] 75 mg PO DAILY #30 tab 12/11/22 Isosorbide Mononitrate ER [Imdur] 30 mg PO DAILY #30 tab 12/11/22 Losartan [Cozaar] 50 mg PO DAILY #30 tab 12/11/22 Metoprolol Tartrate [Lopressor] 50 mg PO BID #60 tab 12/11/22 amLODIPine [Norvasc] 10 mg PO HS #30 tab 12/11/22 Aspirin 81 mg PO DAILY #100 tab 12/15/22 Atorvastatin [Lipitor] 80 mg PO DAILY #30 tab 12/15/22 Nitroglycerin Sl Tabs [Nitrostat] 0.4 mg SUBLINGUAL Q5M PRN #20 tab 12/15/22 Allergies Allergy/AdvReac Type Severity Reaction Status Date / Time No Known Allergies Allergy Verified 12/12/22 21:14 Review of Systems ROS Statement: Those systems with pertinent positive or pertinent negative responses have been documented in the HPI. ROS Other: All systems not noted in ROS Statement are negative. Past Medical History Past Medical History: Atrial Fibrillation, Chest Pain / Angina, Hypertension History of Any Multi-Drug Resistant Organisms: None Reported Past Surgical History: Cholecystectomy, Heart Catheterization, Hysterectomy, Tonsillectomy Additional Past Surgical History / Comment(s): Heart catheterization 12/08/22 Past Anesthesia/Blood Transfusion Reactions: No Reported Reaction Past Psychological History: No Psychological Hx Reported Smoking Status: Never smoker Past Alcohol Use History: Rare Past Drug Use History: None Reported - Past Family History Brother(s) Family Medical History: AFIB, CVA/TIA Mother Family Medical History: Coronary Artery Disease (CAD) Additional Family Medical History / Comment(s): CABG in 70's General Exam Limitations: no limitations General appearance: alert, in no apparent distress Head exam: Present: atraumatic, normocephalic, normal inspection Eye exam: Present: normal appearance, PERRL, EOMI. Absent: scleral icterus, conjunctival injection, periorbital swelling ENT exam: Present: normal exam, mucous membranes moist Neck exam: Present: normal inspection. Absent: tenderness, meningismus, lymphadenopathy Respiratory exam: Present: normal lung sounds bilaterally. Absent: respiratory distress, wheezes, rales, rhonchi, stridor Cardiovascular Exam: Present: regular rate, normal rhythm, normal heart sounds. Absent: systolic murmur, diastolic murmur, rubs, gallop, clicks GI/Abdominal exam: Present: soft, normal bowel sounds. Absent: distended, tenderness, guarding, rebound, rigid Extremities exam: Present: normal inspection, full ROM, normal capillary refill. Absent: tenderness, pedal edema, joint swelling, calf tenderness Back exam: Present: normal inspection Neurological exam: Present: alert, oriented X3, CN II-XII intact Psychiatric exam: Present: normal affect, normal mood Skin exam: Present: warm, dry, intact, normal color. Absent: rash Course Vital Signs 12/12/22 12/12/22 12/12/22 19:39 20:06 22:09 Temperature 98.4 F Pulse Rate 95 78 Respiratory 17 18 Rate Blood Pressure 99/66 110/72 119/85 O2 Sat by Pulse 96 95 Oximetry EKG Findings - EKG Comments: EKG Findings:: EKG demonstrates sinus rhythm with a rate of 91. KS interval 156. QRS 131. QTC of 433. No acute ST segment elevations or depressions Medical Decision Making - Medical Decision Making Was pt. sent in by a medical professional or institution? no Did you speak to anyone other than the patient for history? no Did you review nursing and triage notes? yes and I agree Were old charts reviewed? yes, previous hospitalization Differential Diagnosis? MDM Differential Dyspnea: Coronary syndrome, arrhythmia, tamponade, asthma, COPD, pulmonary embolism, pneumonia, pneumothorax, pulmonary effusion, anaphylaxis, diabetic ketoacidosis, flailed chest, pulmonary contusion, diaphragmatic rupture, anemia, neuromuscular this is not meant to be an all-inclusive list. EKG interpreted by me (3pts min.)? yes X-rays interpreted by me (1pt min.)? yes CT interpreted by me (1pt min.)? no U/S interpreted by me (1pt. min.)? no What testing was considered but not performed? (CT, X-rays, U/S, labs)? Why? none What meds were considered but not given? Why? pain meds - pain gone Did you discuss the management of the patient with other professionals? admitting physician Did you reconcile home meds? yes Was smoking cessation discussed for >3mins.? no Was critical care preformed (if so, how long)? no Were there social determinants of health that impacted care today? How? (Homelessness, low income, unemployed, alcoholism, drug addiction, transp ortation, low edu. Level, literacy, decrease access to med. care, [facility], rehab)? no Was there de-escalation of care discussed even if they declined? (Discuss DNR or withdrawal of care, Hospice)? no What co-morbidities impacted this encounter? (DM, HTN, Smoking, COPD, CAD, Cancer, CVA, Hep., AIDS, mental health diagnosis, sleep apnea, morbid obesity)? htn, coronary dissection, afib Was patient admitted / discharged? Upon arrival patient is placed into room 28. A thorough history and physical exam was performed. Patient placed on continuous pulse ox and cardiac monitoring. 12-lead EKG is obtained. EKG is compared to previous and is similar to last. Recommended laboratory studies and a chest x-ray. Laboratory studies completed. Troponin is 0.727. This is compared to patient's previous troponin which is coming down. Chest x-ray demonstrates no acute process. I d id recommend admission to the hospital for repeat troponins for which she agreed to. Spoke with Dr. Lockett who agreed to admit the patient. Cardiology will be placed on consult Undiagnosed new problem with uncertain prognosis? yes Drug Therapy requiring intensive monitoring for toxicity (Heparin, Nitro, Insulin, Cardizem)? no Were any procedures done? no Diagnosis/symptom? acute chest pain, NSTEMI Acute, or Chronic, or Acute on Chronic? acute Uncomplicated (without systemic symptoms) or Complicated (systemic symptoms)? complicated Side effects of treatment? none Exacerbation, Progression, or Severe Exacerbation] no Poses a threat to life or bodily function? yes - Lab Data Result diagrams: 12/13/22 02:10 12/15/22 08:44 Lab Results 12/12/22 12/12/22 12/12/22 Range/Units 20:05 20:05 20:05 WBC 7.7 (3.8-10.6) k/uL RBC 4.81 (3.80-5.40) m/uL Hgb 15.1 (11.4-16.0) gm/dL Hct 44.6 (34.0-46.0) % MCV 92.7 (80.0-100.0) fL MCH 31.3 (25.0-35.0) pg MCHC 33.8 (31.0-37.0) g/dL RDW 12.5 (11.5-15.5) % Plt Count 221 (150-450) k/uL MPV 9.8 Neutrophils % 68 % Lymphocytes % 22 % Monocytes % 6 % Eosinophils % 2 % Basophils % 1 % Neutrophils # 5.2 (1.3-7.7) k/uL Lymphocytes # 1.7 (1.0-4.8) k/uL Monocytes # 0.4 (0-1.0) k/uL Eosinophils # 0.2 (0-0.7) k/uL Basophils # 0.1 (0-0.2) k/uL PT 9.9 (9.0-12.0) sec INR 0.9 (<1.2) APTT 25.0 (22.0-30.0) sec Sodium 142 (137-145) mmol/L Potassium 4.2 (3.5-5.1) mmol/L Chloride 111 H (98-107) mmol/L Carbon Dioxide 21 L (22-30) mmol/L Anion Gap 10 mmol/L BUN 23 H (7-17) mg/dL Creatinine 0.82 (0.52-1.04) mg/dL Est GFR (CKD-EPI)AfAm >90 (>60 ml/min/1.73 sqM) Est GFR (CKD-EPI)NonAf 79 (>60 ml/min/1.73 sqM) Glucose 168 H (74-99) mg/dL Calcium 9.3 (8.4-10.2) mg/dL Magnesium 1.7 (1.6-2.3) mg/dL Total Bilirubin 1.1 (0.2-1.3) mg/dL AST 30 (14-36) U/L ALT 48 H (4-34) U/L Alkaline Phosphatase 93 (38-126) U/L Troponin I (0.000-0.034) ng/mL NT-Pro-B Natriuret Pep pg/mL Total Protein 7.0 (6.3-8.2) g/dL Albumin 4.0 (3.5-5.0) g/dL Lipase 122 (23-300) U/L 12/12/22 12/12/22 12/12/22 Range/Units 20:05 20:05 23:59 WBC (3.8-10.6) k/uL RBC (3.80-5.40) m/uL Hgb (11.4-16.0) gm/dL Hct (34.0-46.0) % MCV (80.0-100.0) fL MCH (25.0-35.0) pg MCHC (31.0-37.0) g/dL RDW (11.5-15.5) % Plt Count (150-450) k/uL MPV Neutrophils % % Lymphocytes % % Monocytes % % Eosinophils % % Basophils % % Neutrophils # (1.3-7.7) k/uL Lymphocytes # (1.0-4.8) k/uL Monocytes # (0-1.0) k/uL Eosinophils # (0-0.7) k/uL Basophils # (0-0.2) k/uL PT (9.0-12.0) sec INR (<1.2) APTT (22.0-30.0) sec Sodium (137-145) mmol/L Potassium (3.5-5.1) mmol/L Chloride (98-107) mmol/L Carbon Dioxide (22-30) mmol/L Anion Gap mmol/L BUN (7-17) mg/dL Creatinine (0.52-1.04) mg/dL Est GFR (CKD-EPI)AfAm (>60 ml/min/1.73 sqM) Est GFR (CKD-EPI)NonAf (>60 ml/min/1.73 sqM) Glucose (74-99) mg/dL Calcium (8.4-10.2) mg/dL Magnesium (1.6-2.3) mg/dL Total Bilirubin (0.2-1.3) mg/dL AST (14-36) U/L ALT (4-34) U/L Alkaline Phosphatase (38-126) U/L Troponin I 0.727 H* 0.917 H* (0.000-0.034) ng/mL NT-Pro-B Natriuret Pep 186 pg/mL Total Protein (6.3-8.2) g/dL Albumin (3.5-5.0) g/dL Lipase (23-300) U/L 12/13/22 12/13/22 12/13/22 Range/Units 02:10 02:10 02:10 WBC 6.7 (3.8-10.6) k/uL RBC 4.51 (3.80-5.40) m/uL Hgb 14.5 (11.4-16.0) gm/dL Hct 42.5 (34.0-46.0) % MCV 94.3 (80.0-100.0) fL MCH 32.1 (25.0-35.0) pg MCHC 34.1 (31.0-37.0) g/dL RDW 13.1 (11.5-15.5) % Plt Count 170 (150-450) k/uL MPV 10.6 Neutrophils % 61 % Lymphocytes % 28 % Monocytes % 5 % Eosinophils % 2 % Basophils % 1 % Neutrophils # 4.1 (1.3-7.7) k/uL Lymphocytes # 1.9 (1.0-4.8) k/uL Monocytes # 0.4 (0-1.0) k/uL Eosinophils # 0.1 (0-0.7) k/uL Basophils # 0.1 (0-0.2) k/uL PT (9.0-12.0) sec INR (<1.2) APTT (22.0-30.0) sec Sodium 140 (137-145) mmol/L Potassium 4.3 (3.5-5.1) mmol/L Chloride 109 H (98-107) mmol/L Carbon Dioxide 23 (22-30) mmol/L Anion Gap 8 mmol/L BUN 21 H (7-17) mg/dL Creatinine 0.79 (0.52-1.04) mg/dL Est GFR (CKD-EPI)AfAm >90 (>60 ml/min/1.73 sqM) Est GFR (CKD-EPI)NonAf 84 (>60 ml/min/1.73 sqM) Glucose 98 (74-99) mg/dL Calcium 9.0 (8.4-10.2) mg/dL Magnesium (1.6-2.3) mg/dL Total Bilirubin (0.2-1.3) mg/dL AST (14-36) U/L ALT (4-34) U/L Alkaline Phosphatase (38-126) U/L Troponin I 1.060 H* (0.000-0.034) ng/mL NT-Pro-B Natriuret Pep pg/mL Total Protein (6.3-8.2) g/dL Albumin (3.5-5.0) g/dL Lipase (23-300) U/L Disposition Clinical Impression: Chest pain, Spontaneous dissection of coronary artery Disposition: ADMITTED IP TO THIS [facility] Condition: Serious Is patient prescribed a controlled substance at d/c from ED?: No Time of Disposition: 21:10 Decision to Admit Reason: Admit from EC Decision Date: 12/12/22 Decision Time: 21:10
[2022-12-12 20:16] LABS: Basophils # (A) 0.1 k/uL (0-0.2); Basophils % (A) 1 %; Eosinophils # (A) 0.2 k/uL (0-0.7); Eosinophils % (A) 2 %; HCT 44.6 % (34.0-46.0); HGB 15.1 gm/dL (11.4-16.0); Lymphocytes # (A) 1.7 k/uL (1.0-4.8); Lymphocytes % (A) 22 %; MCH 31.3 pg (25.0-35.0); MCHC 33.8 g/dL (31.0-37.0); MCV 92.7 fL (80.0-100.0); Mean Platelet Volume 9.8; Monocytes # (A) 0.4 k/uL (0-1.0); Monocytes % (A) 6 %; Neutrophils # (A) 5.2 k/uL (1.3-7.7); Neutrophils % (A) 68 %; Platelet Count 221 k/uL (150-450); RBC 4.81 m/uL (3.80-5.40); RDW 12.5 % (11.5-15.5); WBC 7.7 k/uL (3.8-10.6)
[2022-12-12 20:30] LABS: ALT 48 U/L (4-34); AST 30 U/L (14-36); African American GFR (CKD) >90 (>60 ml/min/1.73 sqM); Alkaline Phosphatase 93 U/L (38-126); Anion Gap 10 mmol/L; Blood Urea Nitrogen 23 mg/dL (7-17); Calcium 9.3 mg/dL (8.4-10.2); Carbon Dioxide 21 mmol/L (22-30); Chloride 111 mmol/L (98-107); Glucose 168 mg/dL (74-99); INR 0.9 (<1.2); Lipase 122 U/L (23-300); Magnesium 1.7 mg/dL (1.6-2.3); Non-African American GFR(CKD) 79 (>60 ml/min/1.73 sqM); Potassium 4.2 mmol/L (3.5-5.1); Prothrombin Time 9.9 sec (9.0-12.0); Sodium 142 mmol/L (137-145); Total Bilirubin 1.1 mg/dL (0.2-1.3)
--- NOTE | 2022-12-12 20:42 | XR ---
EXAMINATION TYPE: XR chest 2V DATE OF EXAM: 12/12/2022 8:16 PM COMPARISON: Chest radiographs from 11/12/2022 TECHNIQUE: XR chest 2V Frontal and lateral views of the chest. CLINICAL INDICATION:Female, 57 years old with history of Chest Pain; FINDINGS: Lungs/Pleura: There is no evidence of pleural effusion, focal consolidation, or pneumothorax. Pulmonary vascularity: Unremarkable. Heart/mediastinum: Cardiomediastinal silhouette is unremarkable. Musculoskeletal: No acute osseous pathology. IMPRESSION: No acute cardiopulmonary disease/process.
[2022-12-12] MEDS ORDERED: NALOXONE 0.4 MG/ML 1 ML VIAL IV PRN (21:10)
[2022-12-12] MEDS: APIXABAN 2.5 MG TABLET PO SCH (22:37)
[2022-12-12] MEDS: amLODIPine 10 MG TAB PO SCH (22:37)
[2022-12-12] MEDS: ATORVASTATIN 80 MG TAB PO SCH (22:38)
[2022-12-12] MEDS: METOPROLOL TARTRATE 50 MG TAB PO SCH (22:38)
[2022-12-13 02:21] LABS: Basophils # (A) 0.1 k/uL (0-0.2); Basophils % (A) 1 %; Eosinophils # (A) 0.1 k/uL (0-0.7); Eosinophils % (A) 2 %; HCT 42.5 % (34.0-46.0); HGB 14.5 gm/dL (11.4-16.0); Lymphocytes # (A) 1.9 k/uL (1.0-4.8); Lymphocytes % (A) 28 %; MCH 32.1 pg (25.0-35.0); MCHC 34.1 g/dL (31.0-37.0); MCV 94.3 fL (80.0-100.0); Mean Platelet Volume 10.6; Monocytes # (A) 0.4 k/uL (0-1.0); Monocytes % (A) 5 %; Neutrophils # (A) 4.1 k/uL (1.3-7.7); Neutrophils % (A) 61 %; Platelet Count 170 k/uL (150-450); RBC 4.51 m/uL (3.80-5.40); RDW 13.1 % (11.5-15.5); WBC 6.7 k/uL (3.8-10.6)
[2022-12-13 02:30] LABS: African American GFR (CKD) >90 (>60 ml/min/1.73 sqM); Anion Gap 8 mmol/L; Blood Urea Nitrogen 21 mg/dL (7-17); Carbon Dioxide 23 mmol/L (22-30); Chloride 109 mmol/L (98-107); Glucose 98 mg/dL (74-99); Non-African American GFR(CKD) 84 (>60 ml/min/1.73 sqM); Potassium 4.3 mmol/L (3.5-5.1); Sodium 140 mmol/L (137-145)
[2022-12-13] MEDS: APIXABAN 2.5 MG TABLET PO SCH (09:24)
--- NOTE | 2022-12-13 09:31 | CONS ---
CONSULTATION HISTORY OF PRESENT ILLNESS: Anabell is a 57-year-old lady with history of hypertension, paroxysmal atrial fibrillation, dyslipidemia, who was admitted initially to [facility] with chest pain and had elevated troponin. Subsequently was transferred to [facility] and underwent cardiac catheterization on 12/08/2022. Her cardiac catheterization revealed significant stenosis within the 1st OM branch highly suggestive of spontaneous coronary artery dissection that we opted to manage medically. An echocardiogram at that time revealed normal LV systolic function. She was in the hospital and has had a fairly uneventful stay and was discharged home. After going home, she developed chest discomfort that she described as a pressure-like sensation in the precordial area, tebvrjvn-lq-cwhwwg intensity at rest, lasted for more than an hour. She could not become comfortable, came to the ER from where she is admitted. Her troponin was 1.2 at her last admission, on her initial presentation this time it was 0.7. Subsequent 2 troponins came back at 0.9 and 1. An EKG shows sinus rhythm, intraventricular conduction delay and nonspecific ST-T wave changes and evidence of lateral wall myocardial infarction. Her EKG is very similar to the EKG that she had in November. An echocardiogram on last admission revealed normal LV function. This morning at the time of my evaluation, the patient is free of symptoms, stable hemodynamically. The plan at this stage is to repeat a heart catheterization on her and if necessary perform an angioplasty as patient had symptoms in spite of optimal medical therapy. We are going to do this tomorrow as patient had Eliquis yesterday afternoon. PAST MEDICAL HISTORY: Significant for coronary artery disease, hypertension, paroxysmal atrial fibrillation, and dyslipidemia. MEDICATIONS: Medications at home included, 1. Norvasc 10 daily. 2. Lopressor 50 b.i.d. 3. Losartan 50 daily. 4. Imdur 30 daily. 5. Plavix 75 daily. 6. Lipitor 80 daily. 7. Apixaban 2.5 b.i.d. ALLERGIES: There are no known drug allergies. FAMILY HISTORY: Negative for premature coronary artery disease. SOCIAL HISTORY: She denies smoking, ETOH abuse or drug abuse. REVIEW OF SYSTEMS: A review of systems has been performed, pertinence are as documented. PHYSICAL EXAMINATION: VITAL SIGNS: Afebrile, heart rate is 72 beats per minute, blood pressure is 112/73, respiratory rate is 16, and O2 saturation is 98% on room air. NECK: There is no jugular venous distention. Carotid upstroke is normal. There is no bruit. CHEST: Reveals good air entry bilaterally. HEART: Reveals first and second heart sounds. No gallop, no murmur, no rub. ABDOMEN: Soft, nontender. EXTREMITIES: Did not reveal any edema. Peripheral pulses are felt. Right radial artery access site appears normal. LABS: Showed a hemoglobin of 14.5, platelet count is 170, potassium is 4.3, and creatinine 0.79. ASSESSMENT: 1. Acute rcf-KW-hnvwnwo elevation myocardial infarction in a patient with recent spontaneous coronary artery dissection. 2. Paroxysmal atrial fibrillation. 3. Hypertension. 4. Dyslipidemia. PLAN: The patient will undergo repeat cardiac catheterization tomorrow with Dr. Fraire and if necessary undergo coronary intervention. If patient has recurrent episodes of chest pain, we may do this sooner. MMODL / IJN: [id number] /
[2022-12-13] MEDS: ATORVASTATIN 80 MG TAB PO SCH (09:42)
[2022-12-13] MEDS: METOPROLOL TARTRATE 50 MG TAB PO SCH ×2 (09:42→21:09)
[2022-12-13] MEDS: CLOPIDOGREL 75 MG TAB PO SCH (09:42)
[2022-12-13] MEDS: LOSARTAN 50 MG TAB PO SCH (09:42)
[2022-12-13] MEDS: ISOSORBIDE MONONITRATE ER 30 MG TAB.ER.24H PO SCH (09:42)
[2022-12-13] MEDS ORDERED: NITROGLYCERIN SL TABS 0.4 MG TAB SUBLINGUAL PRN (10:11)
[2022-12-13] MEDS ORDERED: ALPRAZolam 0.25 MG TAB PO PRN (10:11)
[2022-12-13] MEDS ORDERED: ALPRAZolam 0.5 MG TAB PO PRN (10:11)
[2022-12-13] MEDS: amLODIPine 10 MG TAB PO SCH (21:10)
[2022-12-14] MEDS: SODIUM CHLORIDE 0.9% 1,000 ML in EMPTY BAG 1 BAG IV SCH ×4 (04:08→23:00)
[2022-12-14] MEDS ORDERED: ATORVASTATIN 80 MG TAB PO ONE (05:00)
[2022-12-14] MEDS ORDERED: ASPIRIN 325 MG TAB PO ONE (05:00)
[2022-12-14] MEDS: CLOPIDOGREL 75 MG TAB PO SCH (05:47)
[2022-12-14] MEDS: ISOSORBIDE MONONITRATE ER 30 MG TAB.ER.24H PO SCH (05:48)
[2022-12-14] MEDS: METOPROLOL TARTRATE 50 MG TAB PO SCH ×2 (05:48→20:44)
[2022-12-14] MEDS: LOSARTAN 50 MG TAB PO SCH (05:48)
[2022-12-14 06:47] LABS: Glucose,Whole Blood 115 mg/dL (70-110)
[2022-12-14] MEDS ORDERED: HEPARIN SODIUM,PORCINE 10,000 UNIT in SODIUM CHLORIDE 0.9% 1,000 ML IRRIGATION PRN (07:00)
[2022-12-14] MEDS ORDERED: HEPARIN SODIUM,PORCINE 2,500 UNIT in SODIUM CHLORIDE 0.9% 250 ML IRRIGATION PRN (07:00)
[2022-12-14] MEDS ORDERED: IV FLUID CONTINUATION 1,000 ML IV ONE (12:30)
[2022-12-14] MEDS ORDERED: HEPARIN SODIUM 1,000 UN/ML (10ML VL) ONE (12:31)
[2022-12-14] MEDS ORDERED: fentaNYL (PF) 50 MCG/ML 2 ML AMP ONE (12:31)
[2022-12-14] MEDS ORDERED: VERAPAMIL 2.5 MG/ML 2 ML AMP ONE (12:31)
[2022-12-14] MEDS ORDERED: fentaNYL (PF) 50 MCG/ML 2 ML AMP IVP ONE (12:46)
[2022-12-14] MEDS ORDERED: LIDOCAINE 1% INJ 10MG/ML (5 ML VIAL-PF) SQ ONE (12:46)
[2022-12-14] MEDS ORDERED: VERAPAMIL SYRINGE (5 MG/10 ML) INTRAARTER ONE (12:48)
[2022-12-14] MEDS ORDERED: HEPARIN SODIUM 1,000 UN/ML (10ML VL) IVP ONE (12:58)
[2022-12-14] MEDS ORDERED: IOPAMIDOL-370 125ML BTL INJ ONE (13:25)
[2022-12-14] MEDS ORDERED: IOPAMIDOL-370 100ML BTL INJ ONE (13:30)
[2022-12-14] MEDS ORDERED: MAG HYDROX/AL HYDROX/SIMETH 30 ML CUP PO PRN (13:36)
[2022-12-14] MEDS ORDERED: NITROGLYCERIN SL TABS 0.4 MG TAB SUBLINGUAL PRN (13:36)
[2022-12-14] MEDS ORDERED: ZOLPIDEM 5 MG TAB PO PRN (13:36)
[2022-12-14] MEDS ORDERED: ATROPINE SULFATE 0.1 MG/ML 10ML SYRINGE IV PRN (13:36)
[2022-12-14] MEDS ORDERED: RX INFO: IV CONTRAST WAS GIVEN 1 EACH MISC MISCELLANE PRN (13:36)
--- NOTE | 2022-12-14 13:43 | P.CARDCATH ---
Date of Procedure: 12/14/22 Description of Procedure: PERCUTANEOUS TRANSLUMINAL CORONARY ANGIOPLASTY CLINICAL INFORMATION: The patient is a 57-year-old female who presented last week with non-STEMI and evidence of SCAD, the decision was to treat her medically, she was discharged home to be readmitted with recurrent chest pain and summary elevation of her troponin.. Recommendations were made regarding angioplasty and stenting. The procedure as well as the risks and the complications were discussed with the patient who was in full understanding and agreement. PROCEDURE: The patient was brought to the labeling specialist in the fasting and semi- sedated state after receiving fentanyl and Benadryl, using Xylocaine anesthesia in the Seldinger technique a 6-[place]izen [place] sheath was introduced in the right radial artery. A 6 [place] 3.75 EBU guiding catheter was introduced into the system. After cannulating the left main, a 0.014 BMW J was advanced across the lesion and positioned distally with the help of a super cross microcatheter, following that the microcatheter was removed. Following that a 2.5 x 12 mm Treck balloon was advanced and inflated at 6 atmosphere. Following that a 2.5 x 23 Xience shante point stent was deployed. It was dilated at 14. After removing the balloon another 2.5 x 18 mm Xience shante point stent was deployed proximally and dilated at 14 lance and after removing the balloon another 2.5 x 15 mm Xience cardiac point was deployed in between the 2 stents and deployed at 16 lance. After the last inflation, after appropriate wait, the balloon and the guidewire were withdrawn back into the guiding catheter. Images were obtained and repeated. Those images reveal stable successful stenting. At that point, the guiding catheter, the balloon, and guidewire were removed. The sheath was removed. Hemostasis was obtained with and deployment of a TR band. There were no immediate complications. The patient was returned to the room in stable condition. Of note, the patient received 7000 units of heparin as well as continue Plavix. Her ACT was followed. There was no immediate complications. She had jaw and chest discomfort that resolved at the end of the procedure. There was no significant EKG changes. RESULTS: Successful stenting of the OM1 with reduction of stenosis from 99 % to 0 %. RECOMMENDATIONS: The patient will continue on aspirin and Plavix in addition to anticoagulation for one week and the aspirin will be stopped and she will continue on Plavix and anticoagulation in addition to aggressive coronary risks modification. The findings and recommendations were discussed with the patient and she was in full understanding and agreement. Duration of sedation: 44 minutes
[2022-12-14] MEDS ORDERED: SODIUM CHLORIDE 0.9% 1,000 ML in EMPTY BAG 1 BAG IV SCH (13:45)
[2022-12-14 14:44] VITALS: BMI 39.9
[2022-12-14] MEDS: ATORVASTATIN 80 MG TAB PO SCH (16:56)
[2022-12-14] MEDS ORDERED: HYDROcodone/APAP 5-325MG 1 EACH TAB PO PRN (18:42)
[2022-12-14] MEDS: amLODIPine 10 MG TAB PO SCH (20:44)
[2022-12-14] MEDS: APIXABAN 2.5 MG TABLET PO SCH (20:54)
[2022-12-14 23:47] VITALS: RESP 16
[2022-12-15] MEDS: APIXABAN 2.5 MG TABLET PO SCH (08:54)
[2022-12-15] MEDS: METOPROLOL TARTRATE 50 MG TAB PO SCH (08:54)
[2022-12-15] MEDS: ATORVASTATIN 80 MG TAB PO SCH (08:54)
[2022-12-15] MEDS: ISOSORBIDE MONONITRATE ER 30 MG TAB.ER.24H PO SCH (08:54)
[2022-12-15] MEDS: CLOPIDOGREL 75 MG TAB PO SCH (08:54)
[2022-12-15] MEDS: LOSARTAN 50 MG TAB PO SCH (08:54)
[2022-12-15 08:58] VITALS: TEMP 97.9
[2022-12-15] MEDS ORDERED: ASPIRIN 81 MG PO SCH (09:00)
[2022-12-15 09:43] LABS: African American GFR (CKD) >90 (>60 ml/min/1.73 sqM); Anion Gap 8 mmol/L; Blood Urea Nitrogen 15 mg/dL (7-17); Calcium 8.6 mg/dL (8.4-10.2); Carbon Dioxide 23 mmol/L (22-30); Chloride 107 mmol/L (98-107); Glucose 162 mg/dL (74-99); Non-African American GFR(CKD) >90 (>60 ml/min/1.73 sqM); Potassium 3.8 mmol/L (3.5-5.1); Sodium 138 mmol/L (137-145)
--- NOTE | 2022-12-15 12:03 | PN ---
PROGRESS NOTE SUBJECTIVE: This is a 57-year-old lady who is admitted to hospital with spontaneous coronary artery dissection and underwent angioplasty with stent placement of the same following readmission with chest pain and mild troponin elevation. This morning she is doing well and is free of symptoms. OBJECTIVE: GENERAL: Comfortable at rest. VITAL SIGNS: Stable. CHEST: Reveals good air entry bilaterally. HEART: Reveals first and second heart sounds. No gallop, no murmur. ABDOMEN: Soft. EXTREMITIES: Did not reveal any edema. Arterial access site appears normal. MEDICATIONS: The patient is currently on, 1. Eliquis. 2. Aspirin. 3. Norvasc. 4. Lipitor. 5. Plavix along with Cozaar and Lopressor. LABS: Potassium is 3.8, creatinine is 0.7. ASSESSMENT: 1. 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 2. History of paroxysmal atrial fibrillation. PLAN: Patient is doing well, stable for discharge. She will follow up with me next Saturday, will hopefully return to work on Saturday. Patient wishes to return to work because of financial reasons and we will do the best we can to send her back as soon as we can. MMODL / IJN: [id number] /
[2022-12-15 12:49] VITALS: BP 124/69; PULSE 67
--- NOTE | 2022-12-15 19:23 | DS ---
DISCHARGE SUMMARY CHIEF COMPLAINT: Chest pain. HISTORY OF PRESENT ILLNESS AND PHYSICAL EXAMINATION: Details of this lady's history and physical can be found in the initial workup. LABORATORY STUDIES: While she is in the hospital, she had laboratory studies, details of which can be found in the laboratory section of her chart. COURSE IN THE HOSPITAL: After admission, she was placed on bedrest, started on intravenous fluids and she had serial EKGs and enzymes which were elevated. She was taken to the [facility], where she underwent stenting of the obtuse marginal. Postoperatively, she did well. It was felt she could be discharged on the . She will go home on her usual activity and basically the same medications in addition to aspirin. She will be seen in the office in several days. FINAL DIAGNOSIS: 1. Acute non-ST elevation myocardial infarction. 2. Coronary artery disease. OPERATIONS: Cardiac cath and stenting of the obtuse marginal. CONSULTATION: Cardiology. She is improved. MMODL / IJN: [id number] /
--- NOTE | 2022-12-18 20:55 | PN ---
PROGRESS NOTE DATE OF SERVICE: 12/14/2022 CHIEF COMPLAINT: Chest pain. HISTORY OF PRESENT ILLNESS: This lady is still having some substernal chest discomfort. She has had no shortness of breath or diaphoresis. She is going back to the catheterization lab today. PHYSICAL EXAMINATION: VITAL SIGNS: Normal. CHEST: Clear. CARDIAC: Normal. ABDOMEN: Soft and nontender. IMPRESSION: 1. Chest pain. 2. Coronary artery disease. PLAN: Repeat cardiac catheterization today. MMODL / IJN: [id number] /
--- NOTE | 2022-12-19 23:29 | PN ---
PROGRESS NOTE DATE OF SERVICE: 12/13/2022 CHIEF COMPLAINT: Chest pain. HISTORY OF PRESENT ILLNESS: This lady is going for another cardiac cath. She is stable at the present time. PHYSICAL EXAMINATION: GENERAL: She is awake, alert, and she has no complaints or pain. VITAL SIGNS: Normal. SKIN: Color is good. CHEST: Clear. CARDIAC: Normal. ABDOMEN: Soft, nontender. IMPRESSION: Angina pectoris. PLAN: She is going back for another cardiac cath. MMODL / IJN: [id number] /
--- NOTE | 2022-12-20 07:39 | HP ---
HISTORY AND PHYSICAL CHIEF COMPLAINT: Chest pain. HISTORY OF PRESENT ILLNESS: This is another recent admission for this 57-year-old white female. She was in the hospital 7 days ago with chest pain and underwent a cardiac cath and was found to have dissection of the circumflex. There was no intervention possible. She was to be managed medically. She came back in with the same type of chest pain again. REVIEW OF SYSTEMS: She has had no syncope, diaphoresis, nausea, palpitations, confusion, etc. Remainder of her history is unchanged from her recent admission. PHYSICAL EXAMINATION: VITAL SIGNS: Blood pressure is 132/86 with a pulse of 79, respirations of 30. She is afebrile. GENERAL: She appears well developed, well nourished, no acute distress. Skin color is normal. HEENT: Head, ears, eyes, nose, mouth and throat were normal. CHEST: Clear. CARDIAC: Normal sinus rhythm and no murmurs or extra sounds. ABDOMEN: Soft and nontender with no visceromegaly or masses. Bowel sounds are present. EXTREMITIES: Normal. NEUROLOGIC: She is intact. DIAGNOSES: She is admitted to the hospital with diagnosis unstable angina. PLAN: 1. Bedrest. 2. IV fluids. 3. Serial EKGs and enzymes. 4. Reconsult Cardiology. MMODL / IJN: [id number] /
== END 2022-12-15 15:10 | disposition home or self-care (01) | DRG 246 ==
LOC: EC 19:33 → 3SCARD 21:23 → OBSVTOIN 12-13 12:51
PROVIDERS: ADMIT Family Medicine; ATTEND Family Medicine
PROC: 027036Z Dilation of Coronary Artery, One Artery with Three Drug-eluting Intraluminal Devices, Percutaneous Approach (ICD-10-PCS; principal; 2022-12-14 12:00)
DX: I21.4 Non-ST elevation (NSTEMI) myocardial infarction (principal); I25.42 Coronary artery dissection; I48.0 Paroxysmal atrial fibrillation; I25.119 Atherosclerotic heart disease of native coronary artery with unspecified angina pectoris; I10 Essential (primary) hypertension; I45.9 Conduction disorder, unspecified; E78.5 Hyperlipidemia, unspecified; Z79.02 Long term (current) use of antithrombotics/antiplatelets; Z79.01 Long term (current) use of anticoagulants; Z79.899 Other long term (current) drug therapy; Z82.49 Family history of ischemic heart disease and other diseases of the circulatory system
CPT/HCPCS: 36415; 71046; 80048; 80053; 83690; 83735; 83880; 84484; 85025; 85610; 85730; 93005; 94760; 99285

== ENCOUNTER 2023-05-21 10:50 | Emergency (ER) | payer OTHER ==
--- NOTE | 2023-05-21 11:40 | ED ---
General Adult HPI - General Chief complaint: Chest Pain Stated complaint: chest pain Time Seen by Provider: 05/21/23 11:20 Source: patient, RN notes reviewed, old records reviewed Mode of arrival: ambulatory Limitations: no limitations - History of Present Illness Initial comments: 58-year-old female history of CAD and atrial fibrillation presenting for evaluation of right upper chest pain. Pain is been present for the past 34 days. She does note that it is in her right upper chest and is worse with movement specifically movement of the right arm. Denies difficulty breathing. Denies central chest pain. No vomiting. No nausea. No diaphoresis. She states she had a different pain at the time of her myocardial infarction in December of this year. She states she is compliant with her medication. - Related Data Home Medications Medication Instructions Recorded Confirmed Atorvastatin [Lipitor] 80 mg PO DAILY 05/21/23 05/21/23 Isosorbide Mononitrate ER [Imdur] 60 mg PO DAILY 05/21/23 05/21/23 amLODIPine [Norvasc] 10 mg PO DAILY 05/21/23 05/21/23 Previous Rx's Medication Instructions Recorded Clopidogrel [Plavix] 75 mg PO DAILY #30 tab 12/11/22 Losartan [Cozaar] 50 mg PO DAILY #30 tab 12/11/22 Metoprolol Tartrate [Lopressor] 50 mg PO BID #60 tab 12/11/22 Nitroglycerin Sl Tabs [Nitrostat] 0.4 mg SUBLINGUAL Q5M PRN #20 tab 12/15/22 Allergies Allergy/AdvReac Type Severity Reaction Status Date / Time No Known Allergies Allergy Verified 05/21/23 12:35 Review of Systems ROS Statement: Those systems with pertinent positive or pertinent negative responses have been documented in the HPI. ROS Other: All systems not noted in ROS Statement are negative. Past Medical History Past Medical History: Atrial Fibrillation, Chest Pain / Angina, Hypertension History of Any Multi-Drug Resistant Organisms: None Reported Past Surgical History: Cholecystectomy, Heart Catheterization, Hysterectomy, Tonsillectomy Additional Past Surgical History / Comment(s): Heart catheterization 12/08/22 Past Anesthesia/Blood Transfusion Reactions: No Reported Reaction Past Psychological History: No Psychological Hx Reported Smoking Status: Never smoker Past Alcohol Use History: Rare Past Drug Use History: None Reported - Past Family History Brother(s) Family Medical History: AFIB, CVA/TIA Mother Family Medical History: Coronary Artery Disease (CAD) Additional Family Medical History / Comment(s): CABG in 70's General Exam Limitations: no limitations General appearance: alert, in no apparent distress Head exam: Present: atraumatic, normocephalic Eye exam: Present: normal appearance, PERRL Neck exam: Present: normal inspection Respiratory exam: Present: normal lung sounds bilaterally. Absent: respiratory distress, wheezes Cardiovascular Exam: Present: regular rate, normal rhythm GI/Abdominal exam: Present: soft. Absent: distended, tenderness, guarding Extremities exam: Present: normal inspection, normal capillary refill. Absent: pedal edema, calf tenderness Neurological exam: Present: alert, oriented X3, CN II-XII intact. Absent: motor sensory deficit Psychiatric exam: Present: anxious Skin exam: Present: warm, dry, intact. Absent: cyanosis, diaphoretic Course Vital Signs 05/21/23 05/21/23 10:51 14:07 Temperature 98.9 F 97.8 F Pulse Rate 76 61 Respiratory 18 16 Rate Blood Pressure 135/79 119/78 O2 Sat by Pulse 97 97 Oximetry Medical Decision Making - Medical Decision Making Was pt. sent in by a medical professional or institution (, PA, VOLTAGE INSPECTOR, urgent care, hospital, or assisted...) When possible be specific @ -No Did you speak to anyone other than the patient for history (EMS, parent, family, police, friend...)? What history was obtained from this source @ -No Did you review nursing and triage notes (agree or disagree)? Why? @ -I reviewed and agree with nursing and triage notes Were old charts reviewed (outside hosp., previous admission, EMS record, old EKG, old radiological studies, urgent care reports/EKG's, assisted records)? Report findings @ -No old charts were reviewed Differential Diagnosis (chest pain, altered mental status, abdominal pain women, abdominal pain men, vaginal bleeding, weakness, fever, dyspnea, syncope, headache, dizziness, GI bleed, back pain, seizure, CVA, palpatations, mental health, musculoskeletal)? @ -[Differential Chest Pain: Stable Angina, Unstable Angina, STEMI, NSTEMI Aortic Dissection, Pneumothorax, M usculoskeletal, Esophageal Spasm GERD, Cholecystitis, Pancreatitis, Zoster, this is not meant to be an all-inclusive list. EKG interpreted by me (3pts min.). @ -[Sinus rhythm with interventricular conduction delay similar QRS morphology compared to EKG from December of this year. There is Q-wave and T-wave inversion in aVL I do not see any ST segment elevation X-rays interpreted by me (1pt min.). @ -Atelectasis versus early infiltrate on lateral view CT interpreted by me (1pt min.). @ -None done U/S interpreted by me (1pt. min.). @ -None done What testing was considered but not performed or refused? (CT, X-rays, U/S, labs)? Why? @ -None What meds were considered but not given or refused? Why? @ -None Did you discuss the management of the patient with other professionals (professionals i.e. , PA, VOLTAGE INSPECTOR, lab, RT, psych nurse, sr. social media & mobile manager, qa developer, teacher, chief lifestyle officer, pillowcase cutter)? Give summary @ -No Was smoking cessation discussed for >3mins.? @ -No Was critical care preformed (if so, how long)? @ -No Were there social determinants of health that impacted care today? How? (Homelessness, low income, unemployed, alcoholism, drug addiction, transportation, low edu. Level, literacy, decrease access to med. care, senior care, rehab)? @ -No Was there de-escalation of care discussed even if they declined (Discuss DNR or withdrawal of care, Hospice)? DNR status @ -No What co-morbidities impacted this encounter? (DM, HTN, Smoking, COPD, CAD, Cancer, CVA, ARF, Chemo, Hep., AIDS, mental health diagnosis, sleep apnea, morbid obesity)? @ -CAD Was patient admitted / discharged? Hospital course, mention meds given and route, prescriptions, significant lab abnormalities, going to OR and other per tinent info. @ -58-year-old female who presents for evaluation of right upper chest pain. Pain is reproducible on exam over the right upper pectoral muscle. She does have a known history of CAD. There is no typical features. Chest x-ray shows a possibility of atelectasis versus early infiltrate although there is no cough, no fever, no leukocytosis. Doubt pneumonia. Patient has a normal CBC, normal CMP, negative troponin which is repeated at the 3 hour kellen and remains n egative. I do feel this patient is stable for outpatient follow-up. Return parameters discussed at length. Undiagnosed new problem with uncertain prognosis? @ -No Drug Therapy requiring intensive monitoring for toxicity (Heparin, Nitro, Insu irene, Cardizem)? @ -No Were any procedures done? @ -No Diagnosis/symptom? @ -Atypical chest pain Acute, or Chronic, or Acute on Chronic? @ -Acute Uncomplicated (without systemic symptoms) or Complicated (systemic symptoms)? @ -default Side effects of treatment? @ -No Exacerbation, Progression, or Severe Exacerbation? @ -No Poses a threat to life or bodily function? How? (Chest pain, USA, OR, pneumonia, PE, COPD, DKA, ARF, appy, cholecystitis, CVA, Diverticulitis, Homicidal, Suicidal, threat to staff... and all critical care pts) @ -Low risk - Lab Data Result diagrams: 05/21/23 11:33 05/21/23 11:33 Lab Results 05/21/23 05/21/23 05/21/23 Range/Units 11:33 11:33 11:33 WBC 5.7 (3.8-10.6) k/uL RBC 4.66 (3.80-5.40) m/uL Hgb 14.4 (11.4-16.0) gm/dL Hct 42.5 (34.0-46.0) % MCV 91.2 (80.0-100.0) fL MCH 30.9 (25.0-35.0) pg MCHC 33.8 (31.0-37.0) g/dL RDW 12.2 (11.5-15.5) % Plt Count 240 (150-450) k/uL MPV 9.4 Neutrophils % 67 % Lymphocytes % 25 % Monocytes % 5 % Eosinophils % 2 % Basophils % 1 % Neutrophils # 3.8 (1.3-7.7) k/uL Lymphocytes # 1.4 (1.0-4.8) k/uL Monocytes # 0.3 (0-1.0) k/uL Eosinophils # 0.1 (0-0.7) k/uL Basophils # 0.0 (0-0.2) k/uL PT 10.8 (9.0-12.0) sec INR 1.0 (<1.2) APTT 25.2 (22.0-30.0) sec Sodium 139 (137-145) mmol/L Potassium 4.1 (3.5-5.1) mmol/L Chloride 106 (98-107) mmol/L Carbon Dioxide 21 L (22-30) mmol/L Anion Gap 12 mmol/L BUN 19 H (7-17) mg/dL Creatinine 1.01 (0.52-1.04) mg/dL Est GFR (CKD-EPI)AfAm 71 (>60 ml/min/1.73 sqM) Est GFR (CKD-EPI)NonAf 61 (>60 ml/min/1.73 sqM) Glucose 114 H (74-99) mg/dL Calcium 9.5 (8.4-10.2) mg/dL Magnesium 1.8 (1.6-2.3) mg/dL Total Bilirubin 2.2 H (0.2-1.3) mg/dL AST 29 (14-36) U/L ALT 37 H (4-34) U/L Alkaline Phosphatase 66 (38-126) U/L Troponin I (0.000-0.034) ng/mL NT-Pro-B Natriuret Pep pg/mL Total Protein 7.4 (6.3-8.2) g/dL Albumin 4.4 (3.5-5.0) g/dL Lipase 69 (23-300) U/L 05/21/23/ Range/Units 11:33 11:33 WBC (3.8-10.6) k/uL RBC (3.80-5.40) m/uL Hgb (11.4-16.0) gm/dL Hct (34.0-46.0) % MCV (80.0-100.0) fL MCH (25.0-35.0) pg MCHC (31.0-37.0) g/dL RDW (11.5-15.5) % Plt Count (150-450) k/uL MPV Neutrophils % % Lymphocytes % % Monocytes % % Eosinophils % % Basophils % % Neutrophils # (1.3-7.7) k/uL Lymphocytes # (1.0-4.8) k/uL Monocytes # (0-1.0) k/uL Eosinophils # (0-0.7) k/uL Basophils # (0-0.2) k/uL PT (9.0-12.0) sec INR (<1.2) APTT (22.0-30.0) sec Sodium (137-145) mmol/L Potassium (3.5-5.1) mmol/L Chloride (98-107) mmol/L Carbon Dioxide (22-30) mmol/L Anion Gap mmol/L BUN (7-17) mg/dL Creatinine (0.52-1.04) mg/dL Est GFR (CKD-EPI)AfAm (>60 ml/min/1.73 sqM) Est GFR (CKD-EPI)NonAf (>60 ml/min/1.73 sqM) Glucose (74-99) mg/dL Calcium (8.4-10.2) mg/dL Magnesium (1.6-2.3) mg/dL Total Bilirubin (0.2-1.3) mg/dL AST (14-36) U/L ALT (4-34) U/L Alkaline Phosphatase (38-126) U/L Troponin I <0.012 (0.000-0.034) ng/mL NT-Pro-B Natriuret Pep 156 pg/mL Total Protein (6.3-8.2) g/dL Albumin (3.5-5.0) g/dL Lipase (23-300) U/L Disposition Clinical Impression: Atypical chest pain Disposition: HOME SELF-CARE Condition: Fair Instructions (If sedation given, give patient instructions): Chest Pain (ED) Is patient prescribed a controlled substance at d/c from ED?: No Referrals: Golden Lockett MD [Primary Care Provider] - 1-2 days Time of Disposition: 14:45
[2023-05-21 11:49] LABS: Basophils % (A) 1 %; Eosinophils # (A) 0.1 k/uL (0-0.7); Eosinophils % (A) 2 %; HCT 42.5 % (34.0-46.0); HGB 14.4 gm/dL (11.4-16.0); Lymphocytes # (A) 1.4 k/uL (1.0-4.8); Lymphocytes % (A) 25 %; MCH 30.9 pg (25.0-35.0); MCHC 33.8 g/dL (31.0-37.0); MCV 91.2 fL (80.0-100.0); Mean Platelet Volume 9.4; Monocytes # (A) 0.3 k/uL (0-1.0); Monocytes % (A) 5 %; Neutrophils # (A) 3.8 k/uL (1.3-7.7); Neutrophils % (A) 67 %; Platelet Count 240 k/uL (150-450); RBC 4.66 m/uL (3.80-5.40); RDW 12.2 % (11.5-15.5); WBC 5.7 k/uL (3.8-10.6)
[2023-05-21 12:04] LABS: ALT 37 U/L (4-34); AST 29 U/L (14-36); African American GFR (CKD) 71 (>60 ml/min/1.73 sqM); Albumin 4.4 g/dL (3.5-5.0); Alkaline Phosphatase 66 U/L (38-126); Anion Gap 12 mmol/L; Blood Urea Nitrogen 19 mg/dL (7-17); Calcium 9.5 mg/dL (8.4-10.2); Carbon Dioxide 21 mmol/L (22-30); Chloride 106 mmol/L (98-107); Glucose 114 mg/dL (74-99); Lipase 69 U/L (23-300); Magnesium 1.8 mg/dL (1.6-2.3); Non-African American GFR(CKD) 61 (>60 ml/min/1.73 sqM); Potassium 4.1 mmol/L (3.5-5.1); Sodium 139 mmol/L (137-145); Total Bilirubin 2.2 mg/dL (0.2-1.3); Total Protein 7.4 g/dL (6.3-8.2)
[2023-05-21 12:11] LABS: Partial Thromboplastin Time 25.2 sec (22.0-30.0); Prothrombin Time 10.8 sec (9.0-12.0)
--- NOTE | 2023-05-21 12:24 | XR ---
EXAMINATION TYPE: XR chest 2V DATE OF EXAM: 05/21/2023 COMPARISON: 12/12/2022 HISTORY: 58-year-old female with chest pain TECHNIQUE: PA and lateral views FINDINGS: Heart upper limits of normal in size. Aorta and pulmonary vasculature within normal limits. Mild stri ngy atelectasis in the lower lungs. There is some mild patchy density at the posterior base on the la teral view. No pleural effusion. IMPRESSION: Mild patchy posterior basilar atelectasis versus early infiltrate on the lateral view.
[2023-05-21 14:08] VITALS: TEMP 97.8
[2023-05-21 15:06] VITALS: BP 141/98; PULSE 60; RESP 18
== END 2023-05-21 15:13 | disposition home or self-care (01) ==
LOC: EC 10:50
DX: R07.89 Other chest pain (principal); I10 Essential (primary) hypertension; I25.10 Atherosclerotic heart disease of native coronary artery without angina pectoris; I25.2 Old myocardial infarction; I48.91 Unspecified atrial fibrillation; Z79.899 Other long term (current) drug therapy; Z90.49 Acquired absence of other specified parts of digestive tract
CPT/HCPCS: 36415; 71046; 80053; 83690; 83735; 83880; 84484; 85025; 85610; 85730; 93005; 99285

== ENCOUNTER → 2023-12-11 | Outpatient (CLI) | payer OTHER ==
--- NOTE | 2023-12-15 15:47 | MM ---
Reason for Exam: Screening (asymptomatic). Last mammogram was performed 1 year(s) and 2 month(s) ago. Patient History: Menarche at age 11. First Full-Term at age 23. Hysterectomy at age 37. Postmenopausal. Patient has history of breast feeding. Risk Values: Kathleen 5 year model risk: 1.2%. NCI Lifetime model risk: 6.7%. Prior Study Comparison: 01/15/2018 Bilateral Screening Mammogram, [facility]. 06/11/2019 Bilateral Screening Mammogram, [facility]. 10/31/2022 Bilateral MG 3D screening mammo w/cad, [facility]. Tissue Density: There are scattered fibroglandular densities. Findings: Analyzed By CAD. The pattern is symmetrical and stable. No significant interval changes. No suspicious groups of microcalcifications, spiculated or lobular masses, architectural distortion or other secondary signs of malignancy are mammographically apparent. Overall Assessment: Benign, BI-RAD 2 Management: Screening Mammogram of both breasts in 1 year. A negative mammogram report should not preclude additional follow up of suspicious palpable abnormalities. Patient should continue monthly self breast exam. A clinical breast exam by your physician is recommended on an annual basis and results should be correlated with mammographic findings. Electronically signed and approved by: Boone Rashid D.O. Radiologis
== END | disposition home or self-care (01) ==
LOC: RADMAMWWP 15:34
PROVIDERS: ATTEND Family Medicine
DX: Z12.31 Encounter for screening mammogram for malignant neoplasm of breast (principal); Z78.0 Asymptomatic menopausal state
CPT/HCPCS: 77067

== ENCOUNTER 2023-12-30 10:55 | Day surgery (SDC) | payer OTHER ==
[2023-12-27 10:27] VITALS: BMI 38.2
[~2023-12-30 10:55] MED LIST: LACTATED RINGERS 1,000 ML IV SCH; LIDOCAINE 1% (10MG/ML) FOR IV START INTRADERMA PRN
[2023-12-30] MEDS ORDERED: LACTATED RINGERS 1,000 ML IV ONE (13:28)
[2023-12-30 13:51] VITALS: RESP 16; TEMP 98.9
[2023-12-30] MEDS ORDERED: PROPOFOL 10 MG/ML 20 ML VIAL IV ONE (14:30)
--- NOTE | 2023-12-30 14:35 | P.GSHP ---
History of Present Illness H&P Date: 12/30/23 Chief Complaint: Screening colonoscopy This is a 58-year-old female who presents today for screening colonoscopy. Patient denies any significant GI complaints. Past Medical History Past Medical History: Atrial Fibrillation, Chest Pain / Angina, Hyperlipidemia, Hypertension, Myocardial Infarction (NM) Additional Past Medical History / Comment(s): Mi 2022 Last Myocardial Infarction Date:: 2022 History of Any Multi-Drug Resistant Organisms: None Reported Past Surgical History: Cholecystectomy, Heart Catheterization, Hysterectomy, T onsillectomy Additional Past Surgical History / Comment(s): Heart catheterization 12/08/22 Past Anesthesia/Blood Transfusion Reactions: No Reported Reaction Additional Past Anesthesia/Blood Transfusion Reaction / Comment(s): no blood transfusion Date of Last Stent Placement:: 2022 5stents Smoking Status: Never smoker - Past Family History Brother(s) Family Medical History: AFIB, CVA/TIA Mother Family Medical History: Coronary Artery Disease (CAD) Additional Family Medical History / Comment(s): CABG in Medications and Allergies Home Medications Medication Instructions Recorded Confirmed Type Clopidogrel [Plavix] 75 mg PO DAILY #30 tab 12/11/22 12/27/23 Rx Losartan [Cozaar] 50 mg PO DAILY #30 tab 12/11/22 12/27/23 Rx Metoprolol Tartrate [Lopressor] 50 mg PO BID #60 tab 12/11/22 12/27/23 Rx Nitroglycerin Sl Tabs [Nitrostat] 0.4 mg SUBLINGUAL Q5M PRN #20 tab 12/15/22 12/27/23 Rx Atorvastatin [Lipitor] 80 mg PO DAILY 05/21/23 12/27/23 History Isosorbide Mononitrate ER [Imdur] 60 mg PO DAILY 05/21/23 12/27/23 History amLODIPine [Norvasc] 10 mg PO DAILY 05/21/23 12/27/23 History Allergies Allergy/AdvReac Type Severity Reaction Status Date / Time No Known Allergies Allergy Verified 12/27/23 09:58 Surgical - Exam Vital Signs Temp Pulse Resp BP Pulse Ox 98.9 F 62 16 125/82 97 12/30/23 13:25 12/30/23 13:25 12/30/23 13:25 12/30/23 13:25 12/30/23 13:25 - General well developed, well nourished, no distress - Eyes PERRL - ENT normal pinna - Neck no masses - Respiratory normal expansion - Cardiovascular Rhythm: regular - Abdomen Abdomen: soft, non tender Assessment and Plan Assessment: Perform screening colonoscopy.
--- NOTE | 2023-12-30 14:48 | P.OP ---
Date of Procedure: 12/30/23 Preoperative Diagnosis: Screening colonoscopy Postoperative Diagnosis: Normal colon Procedure(s) Performed: colonoscopy Anesthesia: MAC Surgeon: Rod Brown Pathology: none sent Condition: stable Disposition: PACU Description of Procedure: The patient was placed on the endoscopy table in the lateral position. She received IV sedation. Digital rectal exam was performed. This revealed no abnormalities. The flexible colonoscope was then placed patient anus and passed throughout the entire colon. The ileocecal valve was visualized. The cecum, ascending and transverse colon appeared normal. The descending and sigmoid colon appeared normal. The scope was then brought back to the rectum and this appeared normal. The scope was then withdrawn from the patient.
[2023-12-30 15:44] VITALS: BP 139/75; PULSE 65
== END 2023-12-30 15:28 | disposition home or self-care (01) ==
LOC: ORWHC2ENDO 10:55
PROVIDERS: ATTEND Surgery
DX: Z12.11 Encounter for screening for malignant neoplasm of colon (principal); E78.5 Hyperlipidemia, unspecified; I10 Essential (primary) hypertension; I25.2 Old myocardial infarction; I48.91 Unspecified atrial fibrillation; Z79.02 Long term (current) use of antithrombotics/antiplatelets; Z90.49 Acquired absence of other specified parts of digestive tract; Z79.899 Other long term (current) drug therapy
CPT/HCPCS: J2704; G0121

== ENCOUNTER → 2024-06-22 | Outpatient (CLI) | payer OTHER ==
--- NOTE | 2024-06-22 08:25 | US ---
EXAMINATION TYPE: US abdomen complete DATE OF EXAM: 06/22/2024 COMPARISON: US 2013 CLINICAL INDICATION: Female, 59 years old with history of R19.4 BOWEL HABIT CHANGES; Patient states i n the last month she has 10 bowel movements a day, anytime she eats anything she has a bowel movement right afterwards TECHNIQUE: Multiple sonographic images of the abdomen are obtained. FINDINGS: EXAM MEASUREMENTS: Liver Length: 18.8 cm CBD: 0.6 cm Spleen: 9.6 cm Right Kidney: 10.5 x 4.9 x 4.6 cm Left Kidney: 9.3 x 4.7 x 4.5 cm Pancreas: visualized portions wnl, limited by overlying midline bowel gas Liver: scanned intercostally, enlarged, mildly course echotexture Gallbladder: surgically absent CBD: visualized portions wnl, limited by overlying bowel gas Spleen: wnl Right Kidney: wnl Left Kidney: wnl Upper IVC: wnl Abd Aorta: wnl The liver is mildly heterogenous echotexture without focal lesion. Mildly enlarged liver. The intrahe patic portion of the IVC and proximal abdominal aorta are within normal limits. Gallbladder is surgic ally absent. Common bile duct is unremarkable. The visualized portions of the pancreas are homogeno us. The spleen is unremarkable. Kidneys are symmetric and free of hydronephrosis. No renal lesions are seen. IMPRESSION: 1. No ultrasound evidence for an acute process. 2. Mild hepatomegaly. 3. Post cholecystectomy changes.
== END | disposition home or self-care (01) ==
LOC: RADUSWWP 07:17
PROVIDERS: ATTEND Family Medicine
DX: R19.4 Change in bowel habit (principal); R16.0 Hepatomegaly, not elsewhere classified; Z90.49 Acquired absence of other specified parts of digestive tract
CPT/HCPCS: 76700

== ENCOUNTER 2025-02-25 21:27 | Observation (INO) | payer OTHER ==
--- NOTE | 2025-02-25 21:55 | ED ---
Chest Pain HPI - General Chief Complaint: Chest Pain Stated Complaint: jaw pain Time Seen by Provider: 02/25/25 21:31 Source: patient, EMS Mode of arrival: EMS Limitations: no limitations - History of Present Illness Initial Comments: This patient is a 60-year-old woman with history of atrial fibrillation who presents with complaint that she is having mainly jaw pain associated with feeling hot. She states that things came on around 7 PM. She states that at the time she was just sitting and relaxing. She took nitroglycerin shortly after and it did relieve the jaw pain. When questioned about chest pain she states she has had some longstanding left upper chest pain has been intermittent, coming and going for weeks to months. She did see the c ardiologist last week who did not feel that it was cardiac in nature. She had was not having associated symptoms at that time. Patient also notes that her blood thinning medicine was held starting last week. MD Complaint: chest pain Onset/Timin -: hour(s) Onset: during rest Pain Radiation: jaw/teeth Severity: severe Quality: aching Consistency: intermittent, now resolved Improves With: nitroglycerin Worsens With: nothing Anginal Symptoms: diaphoresis Treatments Prior to Arrival: nitroglycerin - Related Data Home Medications Medication Instructions Recorded Confirmed Atorvastatin [Lipitor] 80 mg PO DAILY 05/21/23 12/27/23 Isosorbide Mononitrate ER [Imdur] 60 mg PO DAILY 05/21/23 12/27/23 amLODIPine [Norvasc] 10 mg PO DAILY 05/21/23 12/27/23 Previous Rx's Medication Instructions Recorded Clopidogrel [Plavix] 75 mg PO DAILY #30 tab 12/11/22 Losartan [Cozaar] 50 mg PO DAILY #30 tab 12/11/22 Metoprolol Tartrate [Lopressor] 50 mg PO BID #60 tab 12/11/22 Nitroglycerin Sl Tabs [Nitrostat] 0.4 mg SUBLINGUAL Q5M PRN #20 tab 12/15/22 Allergies Allergy/AdvReac Type Severity Reaction Status Date / Time No Known Allergies Allergy Verified 02/25/25 21:35 Review of Systems ROS Statement: Those systems with pertinent positive or pertinent negative responses have been documented in the HPI. ROS Other: All systems not noted in ROS Statement are negative. Constitutional: Denies: fever, chills, weakness Respiratory: Denies: cough, dyspnea Cardiovascular: Reports: chest pain. Denies: palpitations, edema, syncope Gastrointestinal: Denies: abdominal pain, nausea, vomiting, diarrhea Genitourinary: Denies: dysuria, hematuria Musculoskeletal: Denies: back pain Skin: Denies: rash Neurological: Denies: headache, weakness EKG Findings - EKG Results: EKG: interpreted by ERMD EKG shows: atrial fibrillation (Rate is approximately 134 bpm) - Blocks, Sandy, Hypertrophy, ST Abn: AV and intraventricular conduction: left anterior fascicular block Chamber hypertrophy or enlargement: only voltage criteria for left ventricular hypertrophy Repolarization changes or abnormalities: nonspecific abnormality, ST segment, and/or T wave Past Medical History Past Medical History: Atrial Fibrillation, Chest Pain / Angina, Hypertension History of Any Multi-Drug Resistant Organisms: None Reported Past Surgical History: Cholecystectomy, Heart Catheterization, Hysterectomy, Tonsillectomy Additional Past Surgical History / Comment(s): Heart catheterization 12/08/22 Past Anesthesia/Blood Transfusion Reactions: No Reported Reaction Past Psychological History: No Psychological Hx Reported Smoking Status: Never smoker - Past Family History Brother(s) Family Medical History: AFIB, CVA/TIA Mother Family Medical History: Coronary Artery Disease (CAD) Additional Family Medical History / Comment(s): CABG in 70's General Exam Limitations: no limitations General appearance: alert, in no apparent distress Head exam: Present: atraumatic, normocephalic Eye exam: Present: normal appearance. Absent: scleral icterus, conjunctival injection ENT exam: Present: normal oropharynx Neck exam: Present: normal inspection, full ROM Respiratory exam: Present: normal lung sounds bilaterally. Absent: respiratory distress, wheezes, rales, rhonchi, stridor, chest wall tenderness, accessory muscle use Cardiovascular Exam: Present: tachycardia, irregular rhythm, normal heart sounds. Absent: systolic murmur, diastolic murmur, rubs, gallop GI/Abdominal exam: Present: soft. Absent: distended, tenderness, guarding, rebound, rigid, mass Extremities exam: Present: normal inspection, normal capillary refill. Absent: pedal edema, calf tenderness Back exam: Present: normal inspection. Absent: CVA tenderness (R), CVA tenderness (L) Neurological exam: Present: alert Skin exam: Present: warm, dry, intact, normal color. Absent: rash Course Vital Signs 02/25/25 02/25/25 02/26/25 21:30 22:22 00:24 Temperature 98.6 F Pulse Rate 152 H 80 70 Respiratory 18 18 16 Rate Blood Pressure 124/81 136/96 115/80 O2 Sat by Pulse 94 L 94 L 96 Oximetry Chest Pain MDM - MDM The patient had chest x-ray that I interpreted as negative for acute infiltrate, pneumothorax, congestive heart failure Disposition Referrals: None,Stated [REFERRING] - 1-2 days
[2025-02-25] MEDS: ASPIRIN 81 MG PO STA (22:00)
[2025-02-25 22:04] LABS: Basophils # (A) 0.1 k/uL (0-0.2); Basophils % (A) 1 %; Eosinophils # (A) 0.2 k/uL (0-0.7); Eosinophils % (A) 2 %; HCT 45.6 % (34.0-46.0); HGB 15.1 gm/dL (11.4-16.0); Lymphocytes # (A) 2.4 k/uL (1.0-4.8); Lymphocytes % (A) 33 %; MCH 30.6 pg (25.0-35.0); MCHC 33.1 g/dL (31.0-37.0); MCV 92.5 fL (80.0-100.0); Mean Platelet Volume 9.3; Monocytes # (A) 0.5 k/uL (0-1.0); Monocytes % (A) 6 %; Neutrophils # (A) 4.1 k/uL (1.3-7.7); Neutrophils % (A) 55 %; Platelet Count 220 k/uL (150-450); RBC 4.93 m/uL (3.80-5.40); RDW 12.6 % (11.5-15.5); WBC 7.4 k/uL (3.8-10.6)
[2025-02-25] MEDS: HEPARIN SODIUM 1,000 UN/ML (10ML VL) IV ONE (22:09)
[2025-02-25] MEDS: HEPARIN SOD,PORK IN 0.45% NACL 25,000 UNIT in 0.45% NACL 1 250ML.BAG IV SCH (22:10)
[2025-02-25 22:14] LABS: ALT 36 U/L (4-34); AST 27 U/L (14-36); African American GFR (CKD) 71 (>60 ml/min/1.73 sqM); Albumin 4.1 g/dL (3.5-5.0); Alkaline Phosphatase 78 U/L (38-126); Anion Gap 12 mmol/L; Blood Urea Nitrogen 31 mg/dL (7-17); Calcium 9.8 mg/dL (8.4-10.2); Carbon Dioxide 21 mmol/L (22-30); Chloride 106 mmol/L (98-107); Glucose 117 mg/dL (74-99); Magnesium 2.1 mg/dL (1.6-2.3); Non-African American GFR(CKD) 61 (>60 ml/min/1.73 sqM); Potassium 4.1 mmol/L (3.5-5.1); Sodium 139 mmol/L (137-145); Total Bilirubin 1.9 mg/dL (0.2-1.3); Total Protein 7.1 g/dL (6.3-8.2)
[2025-02-25 22:15] LABS: Partial Thromboplastin Time 24.1 sec (22.0-30.0); Prothrombin Time 10.8 sec (10.0-12.5)
[2025-02-25] MEDS: DILTIAZEM DRIP BOLUS FROM BAG 1 MG SOLN IV ONE (22:51)
[2025-02-25] MEDS: DILTIAZEM 125 MG in SODIUM CHLORIDE 0.9% 100 ML IV SCH (22:51)
--- NOTE | 2025-02-26 00:42 | XR ---
EXAM: XR Chest, 2 Views CLINICAL HISTORY: XR Reason: dysrhythmia TECHNIQUE: Frontal and lateral views of the chest. COMPARISON: May 21, 2023 FINDINGS: Lungs: Unremarkable. No consolidation. Pleural space: Unremarkable. No pneumothorax. Heart: Unremarkable. No cardiomegaly. Mediastinum: Unremarkable. Normal mediastinal contour. Bones/joints: Mild osteophytosis in the mid to lower thoracic spine. No acute fracture. IMPRESSION: No acute findings in the chest.
[2025-02-26] MEDS ORDERED: NITROGLYCERIN SL TABS 0.4 MG TAB SUBLINGUAL PRN (01:18)
[2025-02-26] MEDS: METOPROLOL TARTRATE 50 MG TAB PO STA (01:33)
[2025-02-26] MEDS: HEPARIN SODIUM 1,000 UN/ML (10ML VL) IV PRN (08:46)
--- NOTE | 2025-02-26 11:01 | P.CRDCN ---
History of Present Illness Consult date: 02/26/25 History of present illness: The patient is a pleasant 60-year-old female patient who is known to our service from before with a past medical history significant for CAD with prior stenting of OM1 was performed in 2022 as well as paroxysmal atrial fibrillation and also hypertension and dyslipidemia and overweight. The patient presented to the hospital because she was in her usual state of health till earlier today when she developed some discomfort in her jaw with no associated symptoms. She took nitroglycerin and subsequently she felt warm. She did not have any dizziness or lightness or presyncope or syncope and no symptoms of chest pain or chest discomfort or any heart racing or fluttering. When she presented to the emergency department she was in atrial fibrillation with RVR and she converted to normal sinus mechanism and she has been maintaining normal sinus mechanism with a EKG did not show any ischemic ST or T wave abnormalities but cardiac enzymes came to be unremarkable with depressed of the workup overall came to be unremarkable. The physical examination is remarkable for irregular rhythm with a soft systolic murmur at the right and left upper sternal border with clear breathing sounds bilaterally and no edema was noted Assessment A-fib with RVR in somebody with paroxysmal atrial fibrillation Jaw discomfort in somebody with known CAD with prior stenting of the LCx Multiple comorbid conditions including overweight and hypertension and dyslipidemia Plan Acute coronary event was ruled out The patient is back in normal sinus mechanism Will increase the dose of beta-jaquan Further cardiac testing including a stress echocardiogram Further recommendation to follow the stress test Past Medical History Past Medical History: Atrial Fibrillation, Chest Pain / Angina, Hypertension History of Any Multi-Drug Resistant Organisms: None Reported Past Surgical History: Cholecystectomy, Heart Catheterization, Hysterectomy, Tonsillectomy Additional Past Surgical History / Comment(s): Heart catheterization 12/08/22 Past Anesthesia/Blood Transfusion Reactions: No Reported Reaction Past Psychological History: No Psychological Hx Reported Smoking Status: Never smoker - Past Family History Brother(s) Family Medical History: AFIB, CVA/TIA Mother Family Medical History: Coronary Artery Disease (CAD) Additional Family Medical History / Comment(s): CABG in Medications and Allergies Home Medications Medication Instructions Recorded Confirmed Type Metoprolol Tartrate [Lopressor] 50 mg PO BID #60 tab 12/11/22 02/26/25 Rx Atorvastatin [Lipitor] 80 mg PO DAILY 05/21/23 02/26/25 History Isosorbide Mononitrate ER [Imdur] 60 mg PO DAILY 05/21/23 02/26/25 History Aspirin 81 mg PO DAILY 02/26/25 02/26/25 History Furosemide [Lasix] 20 mg PO DAILY 02/26/25 02/26/25 History Losartan Potassium [Cozaar] 100 mg PO DAILY 02/26/25 02/26/25 History Allergies Allergy/AdvReac Type Severity Reaction Status Date / Time No Known Allergies Allergy Verified 02/26/25 07:48 Physical Exam Vitals: Vital Signs Temp Pulse Resp BP Pulse Ox 02/26/25 10:00 65 20 131/76 97 02/26/25 09:00 86 16 130/80 98 02/26/25 07:52 98 F 84 16 118/81 96 02/26/25 05:05 57 L 16 115/77 97 02/26/25 02:15 66 16 109/61 94 L 02/26/25 01:19 70 16 116/75 95 02/26/25 00:24 70 16 115/80 96 02/25/25 22:22 80 18 136/96 94 L 02/25/25 21:30 98.6 F 152 H 18 124/81 94 L Intake and Output 02/25/25 02/26/25 02/26/25 22:59 06:59 14:59 Intake Total 105.167 Balance 105.167 Intake: Intake, IV Titration 105.167 Amount Heparin Sod,Pork in 0.45% 105.167 NaCl 25,000 unit In 0.45 % NaCl 1 250ml.bag @ 9.19 UNITS/KG/HR 10.004 mls/ hr IV .Q24H [facility] Rx#: [id number] Other: Weight 108.862 kg Results 02/25/25 21:54 02/25/25 21:54 Cardiac Enzymes 02/25/25 02/25/25 02/26/25 Range/Units 21:54 21:54 02:08 AST 27 (14-36) U/L Troponin I <0.012 <0.012 (0.000-0.034) ng/mL 02/26/25 Range/Units 06:47 AST (14-36) U/L Troponin I <0.012 (0.000-0.034) ng/mL Coagulation 02/25/25 02/26/25 Range/Units 21:54 06:47 PT 10.8 (10.0-12.5) sec APTT 24.1 38.6 H (22.0-30.0) sec CBC 02/25/25 Range/Units 21:54 WBC 7.4 (3.8-10.6) k/uL RBC 4.93 (3.80-5.40) m/uL Hgb 15.1 (11.4-16.0) gm/dL Hct 45.6 (34.0-46.0) % Plt Count 220 (150-450) k/uL Comprehensive Metabolic Panel 02/25/25 Range/Units 21:54 Sodium 139 (137-145) mmol/L Potassium 4.1 (3.5-5.1) mmol/L Chloride 106 (98-107) mmol/L Carbon Dioxide 21 L (22-30) mmol/L BUN 31 H (7-17) mg/dL Creatinine 1.00 (0.52-1.04) mg/dL Glucose 117 H (74-99) mg/dL Calcium 9.8 (8.4-10.2) mg/dL AST 27 (14-36) U/L ALT 36 H (4-34) U/L Alkaline Phosphatase 78 (38-126) U/L Total Protein 7.1 (6.3-8.2) g/dL Albumin 4.1 (3.5-5.0) g/dL Current Medications Generic Name Dose Route Start Last Admin Trade Name Freq PRN Reason Stop Dose Admin Aspirin 81 mg 02/27/25 09:00 Aspirin 81 Mg PO DAILY [facility] Heparin Sodium (Porcine) 0 unit 02/26/25 08:43 02/26/25 08:46 Heparin Sodium 1,000 Un/Ml (10ml Vl) IV 2,700 unit PER PROTOCOL PRN Administration Low PTT Protocol Heparin Sodium/Sodium Chloride 250 mls @ 10.004 mls/hr 02/25/25 22:00 02/26/25 08:41 25,000 unit/ Sodium Chloride IV 11.19 units/kg/hr .Q24H [facility] 12.182 mls/hr Titration Protocol 9.19 UNITS/KG/HR Diltiazem HCl 125 mg/ Sodium 125 mls @ 5 mls/hr 02/25/25 22:00 02/25/25 22:51 Chloride IV Not Given .Q24H [facility] 5 MG/HR Metoprolol Tartrate 75 mg 02/26/25 21:00 Metoprolol Tartrate 50 Mg Tab PO BID [facility] Nitroglycerin 0.4 mg 02/26/25 01:18 Nitroglycerin Sl Tabs 0.4 Mg Tab SUBLINGUAL Q5M PRN Chest Pain Intake and Output 02/25/25 02/26/25 02/26/25 22:59 06:59 14:59 Intake Total 105.167 Balance 105.167 Intake: Intake, IV Titration 105.167 Amount Heparin Sod,Pork in 0.45% 105.167 NaCl 25,000 unit In 0.45 % NaCl 1 250ml.bag @ 9.19 UNITS/KG/HR 10.004 mls/ hr IV .Q24H [facility] Rx#: [id number] Other: Weight 108.862 kg 02/25/25 21:54 02/25/25 21:54
--- NOTE | 2025-02-26 14:03 | CA ---
Stress Echo Report Anabell Wilkinson Age: 60 Gender: F : 1965 Exam Date: 02/26/2025 12:45 Exam Location: [facility] Ht (in): 65 Wt (lb): 240 Ordering Physician: Ismael Bravo MD Referring Physician: TASHA, Warehouse And Receiving Supervisor: JOSUE Technologist Procedure CPT: Indication: a-fib ICD-9 Codes: Rhythm: Patient History: HTN, PRIOR NH, PRIOR CATH WITH 5 STENTS Cardiac Medications: SEE CHART,,,,, Medications in past 24 hours: Contrast: Stress Results Protocol: Chris Total dose(mL): Exercise Duration (min:sec): 5:[address] Depression (mm): Angina Score: Merrill Score: METS: 7.0 Resting HR: 68 Resting BP: 137 / 93 Peak HR: 124 Peak BP: 168 / 66 Max Predicted HR: 159 78 % Max Predicted HR Target HR: 135 Double Product: [id number] Stress Summary: BP Response: Reason for Termination: Arm Pain Cardiac Symptoms: NO SYMPTOMS ECG Analysis Resting ECG: Normal sinus rhythm left axis deviation and nonspecific intraventricular conduction delay Stress ECG: Patient exercised on Chris protocol for 5 minutes achieving 85% of predicted maximal heart rate without chest pain EKG changes were inconclusive because of significant EKG artifact Arrhythmia: Echo Analysis Resting Echo: Normal left ventricular size wall motion and systolic function Peak Echo Analysis: Normal hyperdynamic response MEASUREMENTS (Male/Female) Normal Values CONCLUSIONS Limited exercise tolerance Inconclusive EKG portion of the stress test Negative stress echo Dr. Yasmani Israel MD (Electronically Signed) Final Date: 26 February 2025 14:02
[2025-02-26] MEDS: METOPROLOL TARTRATE 50 MG TAB PO SCH (21:12)
[2025-02-27 00:08] VITALS: RESP 16
[2025-02-27 04:16] VITALS: TEMP 98
--- NOTE | 2025-02-27 08:59 | P.PN ---
Subjective Progress Note Date: 02/27/25 The patient is a pleasant 60-year-old female patient who is known to our service from before with a past medical history significant for CAD with prior stenting of OM1 was performed in 2022 as well as paroxysmal atrial fibrillation and also hypertension and dyslipidemia and overweight. The patient presented to the hospital because she was in her usual state of health till earlier today when she developed some discomfort in her jaw with no associated symptoms. She took nitroglycerin and subsequently she felt warm. She did not have any dizziness or lightness or presyncope or syncope and no symptoms of chest pain or chest discomfort or any heart racing or fluttering. When she presented to the [facility] department she was in atrial fibrillation with RVR and she converted to normal sinus mechanism and she has been maintaining normal sinus mechanism with a EKG did not show any ischemic ST or T wave abnormalities but cardiac enzymes came to be unremarkable with depressed of the workup overall came to be unremarkable. The physical examination is remarkable for irregular rhythm with a soft systolic murmur at the right and left upper sternal border with clear breathing sounds bilaterally and no edema was noted February 27, 2025 The patient was seen and evaluated this morning she is asymptomatic at this point. She underwent stress test yesterday and that came to be unremarkable. With that being said I am going to DC the heparin and start the patient on oral anticoagulation the patient will be able to be discharged home as far as she is staying asymptomatic. The physical examination is remarkable for regular rhythm with a clear breathing sounds bilaterally and no edema was noted in the lower extremities Assessment A-fib with RVR in somebody with paroxysmal atrial fibrillation Jaw discomfort in somebody with known CAD with prior stenting of the LCx Multiple comorbid conditions including overweight and hypertension and dyslipidemia Plan Continue the current medical regimen DC heparin and start the patient on Xarelto Follow-up with the patient Objective - Vital Signs Vital signs: Vital Signs Temp 98.0 F 02/27/25 04:00 Pulse 59 L 02/27/25 04:00 Resp 16 02/27/25 04:00 BP 131/65 02/27/25 04:00 Pulse Ox 95 02/27/25 04:00 FiO2 Intake & Output 02/26/25 02/27/25 02/27/25 18:59 06:59 18:59 Intake Total 105.167 916.844 240 Balance 105.167 916.844 240 Weight 108.862 kg 107.4 kg Intake: Intake, IV Titration 105.167 136.844 Amount Heparin Sod,Pork in 0.45% 105.167 136.844 NaCl 25,000 unit In 0.45 % NaCl 1 250ml.bag @ 9.19 UNITS/KG/HR 10.004 mls/ hr IV .Q24H [facility] Rx#: [id number] Oral 780 240 Other: # Voids 4 - Labs CBC & Chem 7: 02/25/25 21:54 02/25/25 21:54 Labs: Abnormal Lab Results - Last 24 Hours (Table) 02/26/25 02/27/25 Range/Units 14:33 06:58 APTT 43.5 H 40.6 H (22.0-30.0) sec
[2025-02-27 09:00] VITALS: BP 127/76; PULSE 77
[2025-02-27] MEDS ORDERED: ASPIRIN 325 MG TAB PO SCH (09:00)
[2025-02-27] MEDS: FUROSEMIDE 20 MG TAB PO SCH (09:06)
[2025-02-27] MEDS: LOSARTAN 50 MG TAB PO SCH (09:06)
[2025-02-27] MEDS: ISOSORBIDE MONONITRATE ER 60 MG TAB.ER.24H PO SCH (09:06)
[2025-02-27] MEDS: ATORVASTATIN 80 MG TAB PO SCH (09:06)
[2025-02-27] MEDS: ASPIRIN 81 MG PO SCH (09:06)
[2025-02-27] MEDS: APIXABAN 5 MG TAB PO SCH (09:17)
[2025-02-27 13:28] LABS: Chol/HDL Ratio 3.51 Ratio; LDL Cholesterol,Calculated 66.4 mg/dL (0.0-131.0)
--- NOTE | 2025-03-01 14:20 | HP ---
HISTORY AND PHYSICAL CHIEF COMPLAINT: Rapid heart beating. HISTORY OF PRESENT ILLNESS: This is another admission for this 60-year-old very anxious female. She has had history of coronary artery disease with 1 stent. She has had atrial fibrillation in the past. She recently was in Cardiology's office and they thought maybe she could stop her anticoagulant. She came into the emergency room when she felt her heart beating very fast when she was found to be in atrial fibrillation with a pulse of 153. She had a little discomfort in her jaw. She had no diaphoresis, dizziness, syncope, etc. Past medical history, family history, and personal and social histories are all otherwise unremarkable and unchanged from her previous admitting and discharge summaries. She is not allergic to any medication. She has been on, 1. Lasix 20 mg a day. 2. Atorvastatin 80 mg once a day. 3. Losartan 50 mg once a day. 4. Metoprolol tartrate 50 mg twice a day. Rest of her history is unremarkable. She does not smoke. PHYSICAL EXAMINATION: VITAL SIGNS: Pulse is 153, blood pressure is 120/72. She is afebrile. GENERAL: She appeared to be in no acute distress. Skin is dry. LYMPHATICS: Lymph nodes are not enlarged. HEAD, EARS, EYES, NOSE, MOUTH, AND THROAT: Normal. CHEST: Clear. CARDIAC: Demonstrated tachycardia. ABDOMEN: Soft, nontender. EXTREMITIES: Normal. IMPRESSION: 1. Atrial fibrillation with rapid ventricular response. 2. History of coronary artery disease. 3. History of hypertension. PLAN: 1. Bedrest. 2. IV fluids. 3. Consult Cardiology. 4. Troponins. MMODL / IJN: [id number] /
--- NOTE | 2025-03-01 14:21 | DS ---
DISCHARGE SUMMARY CHIEF COMPLAINT: Rapid heart beating, shortness of breath, and chest pain. HISTORY OF PRESENT ILLNESS AND PHYSICAL EXAMINATION: Details of this lady's history and physical can be found in the initial workup. LABORATORY STUDIES: While she is in the hospital, she had laboratory studies, details of which can be found in the laboratory section of her chart. COURSE IN THE HOSPITAL: After admission, she was placed on bedrest, started on intravenous fluids and had serial EKGs and enzymes. She was seen by Cardiology. Heart rate was slowed and blood pressure is brought under good control. She is started back on Eliquis. She is doing well enough, and it was felt that she could be discharged on the and she will go home on her usual activity, diet, medication along with restarting Eliquis. She will be seen in the office in several days. FINAL DIAGNOSES: 1. New onset atrial fibrillation with rapid ventricular response. 2. Chest pain. 3. History of coronary artery disease. OPERATIONS: None. CONSULTATIONS: Cardiology. She is improved. MMODL / IJN: [id number] /
--- NOTE | 2025-03-01 14:22 | PN ---
PROGRESS NOTE DATE OF SERVICE: 02/27/2025 CHIEF COMPLAINT: New onset atrial fibrillation. HISTORY OF PRESENT ILLNESS: This lady is doing a little bit better. Rate has slowed. She is being seen by Cardiology. PHYSICAL EXAMINATION: CHEST: Clear. CARDIAC: Normal. ABDOMEN: Soft and nontender. IMPRESSION: 1. New onset atrial fibrillation with rapid ventricular response. 2. Coronary artery disease. PLAN: Increase activity and she may be able to go home today or tomorrow. MMODL / IJN: [id number] /
== END 2025-02-27 13:58 | disposition home health service (06) ==
LOC: EC 21:27 → 3SCARD 02-26 01:18 → INTOOBSV 02-26 01:18 → 3SCARD 02-26 06:47
PROVIDERS: ADMIT Family Medicine; ATTEND Family Medicine
DX: I48.0 Paroxysmal atrial fibrillation (principal); I10 Essential (primary) hypertension; I25.10 Atherosclerotic heart disease of native coronary artery without angina pectoris; E78.5 Hyperlipidemia, unspecified; E66.3 Overweight; Z68.39 Body mass index [BMI] 39.0-39.9, adult; Z95.5 Presence of coronary angioplasty implant and graft; Z79.02 Long term (current) use of antithrombotics/antiplatelets; Z79.82 Long term (current) use of aspirin; Z79.899 Other long term (current) drug therapy
CPT/HCPCS: 96366 ×3; 96376 ×2; 96365; 99285; 36415; 93005; 93351; 80061; 80053; 83735; 84484 ×2; 85025; 85610; 85730 ×3; 71046; G0378 ×2; J1644 ×4

== ENCOUNTER 2025-03-15 18:17 | Observation (INO) | payer OTHER ==
--- NOTE | 2025-03-15 18:47 | ED ---
General Adult HPI - General Chief complaint: Chest Pain Stated complaint: Cardiac symptoms Time Seen by Provider: 03/15/25 18:19 Source: patient Mode of arrival: EMS Limitations: no limitations - History of Present Illness Initial comments: Dictation was produced using [employer] dictation software. please excuse any grammatical, word or spelling errors. Chief Complaint: 60-year-old female multiple comorbidities presents with jaw and chest pain History of Present Illness: Patient is a 60-year-old female history of coronary artery disease states that she has 5 stents. 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 Patient states that earlier today she started have some jaw pain took some nitro and her jaw pain went away. States that several minutes later the jaw pain returned along with some chest pain. States it reminds her of a previous heart attack she has had. Patient called EMS. Since being in the ER her symptoms are gone The ROS documented in this emergency department record has been reviewed and confirmed by me. Those systems with pertinent positive or negative responses have been documented in the HPI. All other systems are other negative and/or noncontributory. - Related Data Home Medications Medication Instructions Recorded Confirmed Atorvastatin [Lipitor] 80 mg PO DAILY@0500 05/21/23 03/15/25 Isosorbide Mononitrate ER [Imdur] 60 mg PO DAILY@0500 05/21/23 03/15/25 Aspirin 81 mg PO DAILY@0500 02/26/25 03/15/25 Furosemide [Lasix] 20 mg PO DAILY@0500 02/26/25 03/15/25 Losartan Potassium [Cozaar] 100 mg PO DAILY@0500 02/26/25 03/15/25 Apixaban [Eliquis] 5 mg PO BID@0500,1600 03/15/25 03/15/25 Metoprolol Tartrate [Lopressor] 50 mg PO BID@0500,1600 03/15/25 03/15/25 Nitroglycerin Sl Tabs [Nitrostat] 0.4 mg SL Q5M PRN 03/15/25 03/15/25 Allergies Allergy/AdvReac Type Severity Reaction Status Date / Time No Known Allergies Allergy Verified 03/15/25 20:45 Review of Systems ROS Statement: Those systems with pertinent positive or pertinent negative responses have been documented in the HPI. ROS Other: All systems not noted in ROS Statement are negative. Past Medical History Past Medical History: Atrial Fibrillation, Chest Pain / Angina, Hypertension History of Any Multi-Drug Resistant Organisms: None Reported Past Surgical History: Cholecystectomy, Heart Catheterization, Hysterectomy, Tonsillectomy Additional Past Surgical History / Comment(s): Heart catheterization 12/08/22 Past Anesthesia/Blood Transfusion Reactions: No Reported Reaction Past Psychological History: No Psychological Hx Reported Smoking Status: Never smoker Past Alcohol Use History: Rare Past Drug Use History: None Reported - Past Family History Brother(s) Family Medical History: AFIB, CVA/TIA Mother Family Medical History: Coronary Artery Disease (CAD) Additional Family Medical History / Comment(s): CABG in 70's General Exam - General Exam Comments Initial Comments: PHYSICAL EXAM: General Impression: Alert and oriented x3, not in acute distress HEENT: Normocephalic atraumatic, extra-ocular movements intact, pupils equal and reactive to light bilaterally, mucous membranes moist. Cardiovascular: Heart regular rate and rhythm Chest: Able to complete full sentences, no retractions, no tachypnea Abdomen: abdomen soft, non-tender, non-distended, no organomegaly Musculoskeletal: Pulses present and equal in all extremities, no peripheral edema Motor: no focal deficits noted Neurological: CN II-XII grossly intact, no focal motor or sensory deficits noted Skin: Intact with no visualized rashes Psych: Normal affect and mood Limitations: no limitations Course Vital Signs 03/15/25 18:22 Temperature 98.3 F Pulse Rate 86 Respiratory 16 Rate Blood Pressure 132/95 O2 Sat by Pulse 95 Oximetry EKG Findings - EKG Comments: EKG Findings:: My EKG interpretation: Ventricular rate 81, sinus rhythm, MO 183, QRS 133, QTc 425,. No MO prolongation, no QTC prolongation, no ST or T-wave changes noted. Overall, this EKG is unremarkable Medical Decision Making - Medical Decision Making Was pt. sent in by a medical professional or institution (, PA, BANK CLERK, urgent care, hospital, or fci...) When possible be specific @ -No Did you speak to anyone other than the patient for history (EMS, parent, family, police, friend...)? What history was obtained from this source @ -No Did you review nursing and triage notes (agree or disagree)? Why? @ -I reviewed and agree with nursing and triage notes Were old charts reviewed (outside hosp., previous admission, EMS record, old EKG, old radiological studies, urgent care reports/EKG's, fci records)? Report findings @ -No old charts were reviewed Differential Diagnosis (chest pain, altered mental status, abdominal pain women, abdominal pain men, vaginal bleeding, musculoskeletal, weakness, fever, dyspnea, syncope, headache, dizziness, GI bleed, back pain, seizure, CVA, palpatations, mental health)? @ -Differential Chest Pain: Stable Angina, Unstable Angina, STEMI, NSTEMI Aortic Dissection, Pneumothorax, Musculoskeletal, Esophageal Spasm GERD, Cholecystitis, Pancreatitis, Zoster, this is not meant to be an all-inclusive list. EKG interpreted by me (3pts min.). @ -See above X-rays interpreted by me (1pt min.). @ -Chest x-ray shows no acute processes CT interpreted by me (1pt min.). @ -None done U/S interpreted by me (1pt. min.). @ -None done What testing was considered but not performed or refused? (CT, X-rays, U/S, labs)? Why? @ -None What meds were considered but not given or refused? Why? @ -None Was smoking cessation discussed for >3mins.? @ -No Were there social determinants of health that impacted care today? How? (Homelessness, low income, unemployed, alcoholism, drug addiction, transportation, low edu. Level, literacy, decrease access to med. care, retirement, rehab)? @ -No Was there de-escalation of care discussed even if they declined (Discuss DNR or withdrawal of care, Hospice)? DNR status @ -No What co-morbidities impacted this encounter? (DM, HTN, Smoking, COPD, CAD, Cancer, CVA, ARF, Chemo, Hep., AIDS, mental health diagnosis, sleep apnea, morbid obesity)? @ -Coronary artery disease Was patient admitted / discharged? Hospital course, mention meds given and route, prescriptions, significant lab abnormalities, going to OR and other p ertinent info. @ -60-year-old female presents to the emergency department with symptoms concerning for acute coronary syndrome. She is high risk with history of coronary artery disease and coronary artery stent. Vital signs stable. EKG is unremarkable. Laboratory evaluations unremarkable. Patient given aspirin will be admitted consultation to cardiology. Case discussed with hospitalist for admission Did you discuss the management of the patient with other professionals (professionals i.e. , PA, BANK CLERK, lab, RT, psych nurse, addiction social worker, associate professor of literature, teacher, sailing officer, disease case manager rn)? Give summary @ -See above Was critical care preformed (if so, how long)? @ -No Undiagnosed new problem with uncertain prognosis? @ -No Drug Therapy requiring intensive monitoring for toxicity (Heparin, Nitro, Insulin, Cardizem)? @ -No Were any procedures done? @ -No Diagnosis/symptom? Acute, or Chronic, or Acute on Chronic? Uncomplicated (without systemic symptoms) or Complicated (systemic symptoms)? @ -Chest pain Side effects of treatment? @ -No Exacerbation, Progression, or Severe Exacerbation? @ -No Poses a threat to life or bodily function? How? (Chest pain, [place], [place], pneumonia, PE, COPD, DKA, ARF, appy, cholecystitis, CVA, Diverticulitis, Homicidal, Suicidal, threat to staff... and all critical care pts) @ -yes - Lab Data Result diagrams: 03/15/25 18:45 03/15/25 18:45 Lab Results 03/15/25 03/15/25 03/15/25 Range/Units 18:45 18:45 18:45 WBC 7.26 (4.50-10.00) 10*3/uL RBC 4.61 (4.10-5.20) 10*6/uL Hgb 14.4 (12.0-15.0) g/dL Hct 41.7 (37.2-46.3) % MCV 90.5 (80.0-97.0) fL MCH 31.2 (27.0-32.0) pg MCHC 34.5 (32.0-37.0) g/dL Plt Count 213 (140-440) 10*3/uL MPV 11.7 (9.5-12.2) fL Immature Gran % (Auto) 0.3 % Neutrophils % 62.5 % Lymphocytes % 27.0 % Monocytes % 7.7 % Eosinophils % 1.5 % Basophils % 1.0 % Immature Gran # 0.02 (0.00-0.04) 10*3/uL Neutrophils # 4.54 (1.80-7.70) 10*3/uL Lymphocytes # 1.96 (0.90-5.00) 10*3/uL Monocytes # 0.56 (0.20-1.00) 10*3/uL Eosinophils # 0.11 (0.04-0.35) 10*3/uL Basophils # 0.07 (0.00-0.10) 10*3/uL PT 11.0 (10.0-12.5) sec INR 1.0 (<1.2) APTT 26.2 (22.0-30.0) sec Sodium 139 (137-145) mmol/L Potassium 3.8 (3.5-5.1) mmol/L Chloride 107 (98-107) mmol/L Carbon Dioxide 21 L (22-30) mmol/L Anion Gap 11 mmol/L BUN 25 H (7-17) mg/dL Creatinine 0.85 (0.52-1.04) mg/dL Est GFR (CKD-EPI)AfAm 86 (>60 ml/min/1.73 sqM) Est GFR (CKD-EPI)NonAf 75 (>60 ml/min/1.73 sqM) Glucose 110 H (74-99) mg/dL Calcium 9.6 (8.4-10.2) mg/dL Magnesium 2.0 (1.6-2.3) mg/dL Total Bilirubin 1.6 H (0.2-1.3) mg/dL AST 27 (14-36) U/L ALT 33 (4-34) U/L Alkaline Phosphatase 93 (38-126) U/L Troponin I (0.000-0.034) ng/mL Total Protein 7.1 (6.3-8.2) g/dL Albumin 4.3 (3.5-5.0) g/dL 03/15/25 Range/Units 18:45 WBC (4.50-10.00) 10*3/uL RBC (4.10-5.20) 10*6/uL Hgb (12.0-15.0) g/dL Hct (37.2-46.3) % MCV (80.0-97.0) fL MCH (27.0-32.0) pg MCHC (32.0-37.0) g/dL Plt Count (140-440) 10*3/uL MPV (9.5-12.2) fL Immature Gran % (Auto) % Neutrophils % % Lymphocytes % % Monocytes % % Eosinophils % % Basophils % % Immature Gran # (0.00-0.04) 10*3/uL Neutrophils # (1.80-7.70) 10*3/uL Lymphocytes # (0.90-5.00) 10*3/uL Monocytes # (0.20-1.00) 10*3/uL Eosinophils # (0.04-0.35) 10*3/uL Basophils # (0.00-0.10) 10*3/uL PT (10.0-12.5) sec INR (<1.2) APTT (22.0-30.0) sec Sodium (137-145) mmol/L Potassium (3.5-5.1) mmol/L Chloride (98-107) mmol/L Carbon Dioxide (22-30) mmol/L Anion Gap mmol/L BUN (7-17) mg/dL Creatinine (0.52-1.04) mg/dL Est GFR (CKD-EPI)AfAm (>60 ml/min/1.73 sqM) Est GFR (CKD-EPI)NonAf (>60 ml/min/1.73 sqM) Glucose (74-99) mg/dL Calcium (8.4-10.2) mg/dL Magnesium (1.6-2.3) mg/dL Total Bilirubin (0.2-1.3) mg/dL AST (14-36) U/L ALT (4-34) U/L Alkaline Phosphatase (38-126) U/L Troponin I 0.013 (0.000-0.034) ng/mL Total Protein (6.3-8.2) g/dL Albumin (3.5-5.0) g/dL Disposition Clinical Impression: Chest pain Disposition: ADMITTED IP TO THIS HOSP Condition: Fair Referrals: Golden Lockett MD [Primary Care Provider] - 1-2 days Decision Time: 20:00
[2025-03-15 19:14] LABS: Basophils # (A) 0.07 10*3/uL (0.00-0.10); Eosinophils # (A) 0.11 10*3/uL (0.04-0.35); Eosinophils % (A) 1.5 %; HCT 41.7 % (37.2-46.3); HGB 14.4 g/dL (12.0-15.0); Lymphocytes # (A) 1.96 10*3/uL (0.90-5.00); MCH 31.2 pg (27.0-32.0); MCHC 34.5 g/dL (32.0-37.0); MCV 90.5 fL (80.0-97.0); Mean Platelet Volume 11.7 fL (9.5-12.2); Monocytes # (A) 0.56 10*3/uL (0.20-1.00); Monocytes % (A) 7.7 %; Neutrophils # (A) 4.54 10*3/uL (1.80-7.70); Neutrophils % (A) 62.5 %; Platelet Count 213 10*3/uL (140-440); RBC 4.61 10*6/uL (4.10-5.20); RDW 12.3 % (11.5-14.5); WBC 7.26 10*3/uL (4.50-10.00)
[2025-03-15 19:25] LABS: Partial Thromboplastin Time 26.2 sec (22.0-30.0)
[2025-03-15 19:42] LABS: ALT 33 U/L (4-34); AST 27 U/L (14-36); African American GFR (CKD) 86 (>60 ml/min/1.73 sqM); Albumin 4.3 g/dL (3.5-5.0); Alkaline Phosphatase 93 U/L (38-126); Anion Gap 11 mmol/L; Blood Urea Nitrogen 25 mg/dL (7-17); Calcium 9.6 mg/dL (8.4-10.2); Carbon Dioxide 21 mmol/L (22-30); Chloride 107 mmol/L (98-107); Glucose 110 mg/dL (74-99); Non-African American GFR(CKD) 75 (>60 ml/min/1.73 sqM); Potassium 3.8 mmol/L (3.5-5.1); Sodium 139 mmol/L (137-145); Total Bilirubin 1.6 mg/dL (0.2-1.3); Total Protein 7.1 g/dL (6.3-8.2)
--- NOTE | 2025-03-15 19:58 | XR ---
EXAMINATION TYPE: XR chest 2V DATE OF EXAM: 03/15/2025 7:14 PM COMPARISON: Chest radiographs from02/25/2025 CLINICAL INDICATION: Female, 60 years old with history of Chest Pain; [facility] TECHNIQUE: XR chest 2V Frontal and lateral views of the chest. FINDINGS: Lungs/Pleura: There is no evidence of pleural effusion, focal consolidation, or pneumothorax. Pulmonary vascularity: Unremarkable. Heart/mediastinum: Cardiomediastinal silhouette is unremarkable. Musculoskeletal: No acute osseous pathology. Other findings: None IMPRESSION: No acute cardiopulmonary disease/process. [facility], , 03/15/2025 7:56 PM
[2025-03-15] MEDS ORDERED: NITROGLYCERIN SL TABS 0.4 MG TAB SUBLINGUAL PRN ×2 (20:54→22:48)
[2025-03-16 01:59] VITALS: RESP 16
[2025-03-16 07:56] VITALS: BP 120/75; PULSE 71; TEMP 97.7
[2025-03-16] MEDS: FUROSEMIDE 20 MG TAB PO SCH (08:01)
[2025-03-16] MEDS: ASPIRIN 81 MG PO SCH (08:01)
[2025-03-16] MEDS: ATORVASTATIN 80 MG TAB PO SCH (08:02)
[2025-03-16] MEDS: APIXABAN 5 MG TAB PO SCH (08:02)
[2025-03-16] MEDS: LOSARTAN 50 MG TAB PO SCH (08:02)
[2025-03-16] MEDS: METOPROLOL TARTRATE 50 MG TAB PO SCH (08:03)
[2025-03-16] MEDS: ISOSORBIDE MONONITRATE ER 60 MG TAB.ER.24H PO SCH (08:03)
[2025-03-16] MEDS ORDERED: ASPIRIN 325 MG TAB PO SCH (09:00)
[2025-03-16 09:52] LABS: Chol/HDL Ratio 3.17 Ratio; LDL Cholesterol,Calculated 37.3 mg/dL (0.0-131.0)
--- NOTE | 2025-03-16 13:56 | P.CRDCN ---
History of Present Illness Consult date: 03/16/25 Consult reason: chest pain History of present illness: This is a 60-year-old female patient of Dr. Megan Israel with past medical history of coronary artery disease with prior stenting of OM1 performed in 2022, paroxysmal atrial fibrillation on Eliquis, dyslipidemia, hypertension and overweight. We have been asked to evaluate the patient for chest pain. Patient had a recent hospitalization on 01/2829 and was seen by cardiology at that time for A-fib with RVR as well as jaw discomfort. Patient had a follow-up in the office on 03/10. Patient now presents due to jaw pain. She states she had jaw pain and some chest pressure that went away with nitroglycerin and then came back. She states that chest pain was minimal and jaw pain was bothering her. She underwent a stress test on her last hospitalization on 02/27 which was unremarkable and patient was cleared for discharge home. Patient states she is normally able to feel when she goes into atrial fibrillation but not yesterday. She complains of her arms feeling tired. She states onset of this discomfort happened when she was trying to take a nap. Discomfort is gone and patient is not sure what improved things. She states her wrist shoulders have been sore from work that she had done. Blood pressure 120/75, heart rate 71, pulse ox 97% on room air. -EKG: Sinus rhythm, IVCD. -Chest x-ray: No acute process. -Laboratory studies: CBC, INR within normal limits. Troponin negative x 3. Potassium 3.8, BUN 25 creatinine 0.85. Triglycerides 238, cholesterol 124 and LDL 37. -Home cardiac medications: Eliquis 5 mg twice daily, aspirin 81 mg daily, atorvastatin 80 mg daily, Lasix 20 mg daily, Imdur 60 mg daily, losartan 100 mg daily, metoprolol tartrate 50 mg twice daily, Nitrostat as needed. -Stress echocardiogram performed on 02/26/2025 was a limited exercise tolerance. Inconclusive EKG portion. Negative stress echo. -Echocardiogram performed in the office on 01/14/2025 revealed EF of 55%, aortic valve is calcified. Mild mitral and tricuspid insufficiency. Review Of Systems: At the time of my exam: CONSTITUTIONAL: Denies fever or chills. HEENT: Denies blurred vision, vision changes, or eye pain. Denies hemoptysis CARDIOVASCULAR: Denies chest pain. Denies orthopnea. Denies PND. Denies palpitations RESPIRATORY: Denies shortness of breath. GASTROINTESTINAL: Denies abdominal pain. Denies nausea or vomiting. HEMATOLOGIC: Denies bleeding disorders. GENITOURINARY: Denies any blood in urine. SKIN: Denies puritis. Denies rash. Physical examination: Gen: This is 60-year-old female in no acute distress VS: reviewed HEENT: Head is atraumatic, normocephalic. Pupils equal, round. Sclerae is anicteric. NECK: Supple. No JVD. LUNGS: Clear to auscultation. No wheezes or rhonchi. No intercostal retractions. HEART: Regular rate and rhythm. No murmur. ABDOMEN: Soft No tenderness. EXTREMITIES: No pedal edema. No calf tenderness. NEUROLOGICAL: Patient is awake, alert and oriented x3. Assessment: Atypical chest pain, acute coronary syndrome ruled out History of CAD with prior stenting of OM1 in 2022 Paroxysmal atrial fibrillation in sinus rhythm on Eliquis Dyslipidemia Hypertension Overweight with BMI of 39 Plan: Continue patient's home cardiac medications No medication changes made No further cardiac workup at this time Patient to ambulate in the hallway and plan for discharge home with no symptoms. Patient will follow-up in the office with Dr. Serena Israel in 2 weeks. Thank you kindly for this consultation. Nurse practitioner note has been reviewed, I agree with documented findings and plan of care. Patient was seen and examined. Past Medical History Past Medical History: Atrial Fibrillation, Chest Pain / Angina, Hypertension, Myocardial Infarction ([place]) Last Myocardial Infarction Date:: 2022 History of Any Multi-Drug Resistant Organisms: None Reported Past Surgical History: Cholecystectomy, Heart Catheterization, Hysterectomy, Tonsillectomy Additional Past Surgical History / Comment(s): Heart catheterization with 5 stents 12/08/22 Past Anesthesia/Blood Transfusion Reactions: No Reported Reaction Past Psychological History: No Psychological Hx Reported Smoking Status: Never smoker Past Alcohol Use History: None Reported Past Drug Use History: None Reported - Past Family History Brother(s) Family Medical History: AFIB, CVA/TIA Mother Family Medical History: Coronary Artery Disease (CAD) Additional Family Medical History / Comment(s): CABG in 's Medications and Allergies Home Medications Medication Instructions Recorded Confirmed Type Atorvastatin [Lipitor] 80 mg PO DAILY@0500 05/21/23 03/15/25 History Isosorbide Mononitrate ER [Imdur] 60 mg PO DAILY@05005/21/23 03/15/25 History Aspirin 81 mg PO DAILY@49902/26/25 03/15/25 History Furosemide [Lasix] 20 mg PO DAILY@05002/26/25 03/15/25 History Losartan Potassium [Cozaar] 100 mg PO DAILY@49902/26/25 03/15/25 History Apixaban [Eliquis] 5 mg PO BID@050,159903/15/25 03/15/25 History Metoprolol Tartrate [Lopressor] 50 mg PO BID@050,159903/15/25 03/15/25 History Nitroglycerin Sl Tabs [Nitrostat] 0.4 mg SL Q5M PRN 03/15/25 03/15/25 History Allergies Allergy/AdvReac Type Severity Reaction Status Date / Time No Known Allergies Allergy Verified 03/15/25 20:45 Physical Exam Vitals: Vital Signs Temp Pulse Pulse Resp BP BP Pulse Ox 03/16/25 07:00 97.7 F 71 16 120/75 97 03/16/25 01:58 98.2 F 74 16 103/64 94 L 03/15/25 22:39 97.9 F 71 17 142/87 96 03/15/25 22:07 98 F 63 17 130/88 96 03/15/25 18:22 98.3 F 86 16 132/95 95 Intake and Output 03/15/25 03/16/25 03/16/25 22:59 06:59 14:59 Other: # Voids 1 3 Weight 107.955 kg Results 03/15/25 18:45 03/15/25 18:45 Cardiac Enzymes 03/15/25 03/15/25 03/15/25 Range/Units 18:45 18:45 22:36 AST 27 (14-36) U/L Troponin I 0.013 0.021 (0.000-0.034) ng/mL 03/16/25 Range/Units 01:32 AST (14-36) U/L Troponin I 0.017 (0.000-0.034) ng/mL Coagulation 03/15/25 Range/Units 18:45 PT 11.0 (10.0-12.5) sec APTT 26.2 (22.0-30.0) sec CBC 03/15/25 Range/Units 18:45 WBC 7.26 (4.50-10.00) 10*3/uL RBC 4.61 (4.10-5.20) 10*6/uL Hgb 14.4 (12.0-15.0) g/dL Hct 41.7 (37.2-46.3) % Plt Count 213 (140-440) 10*3/uL Comprehensive Metabolic Panel 03/15/25 Range/Units 18:45 Sodium 139 (137-145) mmol/L Potassium 3.8 (3.5-5.1) mmol/L Chloride 107 (98-107) mmol/L Carbon Dioxide 21 L (22-30) mmol/L BUN 25 H (7-17) mg/dL Creatinine 0.85 (0.52-1.04) mg/dL Glucose 110 H (74-99) mg/dL Calcium 9.6 (8.4-10.2) mg/dL AST 27 (14-36) U/L ALT 33 (4-34) U/L Alkaline Phosphatase 93 (38-126) U/L Total Protein 7.1 (6.3-8.2) g/dL Albumin 4.3 (3.5-5.0) g/dL Current Medications Generic Name Dose Route Start Last Admin Trade Name Freq PRN Reason Stop Dose Admin Apixaban 5 mg 03/16/25 09:00 03/16/25 08:02 Apixaban 5 Mg Tab PO 5 mg BID ELIZABETH Administration Protocol Aspirin 81 mg 03/16/25 09:00 03/16/25 08:01 Aspirin 81 Mg PO 81 mg DAILY ELIZABETH Administration Atorvastatin Calcium 80 mg 03/16/25 09:00 03/16/25 08:02 Atorvastatin 80 Mg Tab PO 80 mg DAILY ELIZABETH Administration Furosemide 20 mg 03/16/25 09:00 03/16/25 08:01 Furosemide 20 Mg Tab PO 20 mg DAILY ELIZABETH Administration Isosorbide Mononitrate 60 mg 03/16/25 09:00 03/16/25 08:03 Isosorbide Mononitrate Er 60 Mg Tab.Er.24h PO 60 mg DAILY ELIZABETH Administration Losartan Potassium 100 mg 03/16/25 09:00 03/16/25 08:02 Losartan 50 Mg Tab PO 100 mg DAILY ELIZABETH Administration Metoprolol Tartrate 50 mg 03/16/25 09:00 03/16/25 08:03 Metoprolol Tartrate 50 Mg Tab PO 50 mg BID ELIZABETH Administration Nitroglycerin 0.4 mg 03/15/25 22:48 Nitroglycerin Sl Tabs 0.4 Mg Tab SUBLINGUAL Q5M PRN Chest Pain Intake and Output 03/15/25 03/16/25 03/16/25 22:59 06:59 14:59 Other: # Voids 1 3 Weight 107.955 kg 03/15/25 18:45 03/15/25 18:45
--- NOTE | 2025-03-17 00:03 | HP ---
HISTORY AND PHYSICAL CHIEF COMPLAINT: Chest pain. HISTORY OF PRESENT ILLNESS: This is another recent admission for this 60-year-old white female, who has had a history of coronary artery disease. She was just in the hospital recently. She came to the emergency room after she developed substernal chest discomfort associated with diaphoresis and shortness of breath. In the emergency room, her enzymes were normal and she was admitted. She has been following with Cardiology. REVIEW OF SYSTEMS: She denied any aching in the jaw, arms, syncope, nausea, vomiting, etc. The rest of her symptoms are unremarkable or normal. Past medical history, family history, and personal and social histories are all otherwise unremarkable and unchanged from her recent admitting and discharge summaries several weeks ago. She is not allergic to anything. MEDICATIONS: She has been on, 1. Isordil. 2. Aspirin. 3. Eliquis. 4. Lasix. 5. Atorvastatin. 6. Losartan. 7. Metoprolol. The remainder of her history is unremarkable. She does not smoke. She does work. She does not abuse alcohol. PHYSICAL EXAMINATION: VITAL SIGNS: Blood pressure 124/74 with a pulse 69, respirations 17. She is afebrile. GENERAL: She appeared to be in no acute distress. SKIN: Color is normal. Skin is warm and dry. LYMPHATICS: Lymph nodes are not enlarged. HEAD, EARS, EYES, NOSE, MOUTH AND THROAT: Normal. NECK: Neck veins were not distended. CHEST: Clear. CARDIAC: Normal. It was difficult to tell if she was in atrial fibrillation. ABDOMEN: Soft, nontender. EXTREMITIES: Normal. NEUROLOGICAL: She is intact. ASSESSMENT: She is admitted to the hospital with diagnoses of, 1. Chest pain. 2. Coronary artery disease. 3. Unstable angina pectoris. 4. Atrial fibrillation. 5. Anxiety. PLAN: 1. Bed rest. 2. IV fluids. 3. Serial enzymes and EKGs. 4. Cardiology consult. MMODL / IJN: [id number] /
--- NOTE | 2025-03-17 02:15 | DS ---
DISCHARGE SUMMARY CHIEF COMPLAINT: Chest pain. HISTORY OF PRESENT ILLNESS AND PHYSICAL EXAM: Details of this lady's history and physical can be found in the initial workup. COURSE IN THE HOSPITAL: After admission, she was placed on bedrest and had serial EKGs and enzymes. She was seen by Cardiology. They felt that she could be cleared and she was discharged home on her usual activity, medication. To follow up in my office as well as Cardiology. FINAL DIAGNOSES: 1. Unstable angina pectoris. 2. Coronary artery disease. 3. History of cardiac arrhythmia. OPERATIONS: None. CONSULTATIONS: Cardiology. She is improved. MMODL / IJN: [id number] /
== END 2025-03-16 12:56 | disposition home or self-care (01) ==
LOC: EC 18:17 → 6NMEDSUR 20:55
PROVIDERS: ADMIT Family Medicine; ATTEND Family Medicine
DX: I25.110 Atherosclerotic heart disease of native coronary artery with unstable angina pectoris (principal); I48.0 Paroxysmal atrial fibrillation; I08.3 Combined rheumatic disorders of mitral, aortic and tricuspid valves; I10 Essential (primary) hypertension; E78.5 Hyperlipidemia, unspecified; E66.3 Overweight; Z68.39 Body mass index [BMI] 39.0-39.9, adult; F41.9 Anxiety disorder, unspecified; I25.2 Old myocardial infarction; Z79.82 Long term (current) use of aspirin; Z79.01 Long term (current) use of anticoagulants; Z79.899 Other long term (current) drug therapy; Z95.5 Presence of coronary angioplasty implant and graft
CPT/HCPCS: 99285; 36415; 93005; 80061; 80053; 83735; 84484 ×2; 85025; 85610; 85730; 71046; G0378 ×2

== ENCOUNTER 2025-03-29 23:34 | Observation (INO) | payer OTHER ==
--- NOTE | 2025-03-29 23:45 | ED ---
Chest Pain HPI - General Stated Complaint: RENETTA Time Seen by Provider: 03/29/25 23:37 Source: RN notes reviewed, old records reviewed Mode of arrival: EMS Limitations: no limitations - History of Present Illness Initial Comments: This is a 60-year-old female to the ER for evaluation severe chest pain severe shortness of breath severely elevated heart rate with palpitations the symptoms all woke her from sleep tonight. Patient went to the ER very anxious crying secondary to the pain being scared with the pain on the left side of her chest with strong history of CAD 5 stents MD Complaint: chest pain -: hour(s) Onset: awoke with symptoms Pain Location: left chest Pain Radiation: LUE Severity: moderate Severity scale (1-10): 4 Quality: aching Consistency: constant Improves With: nothing Anginal Symptoms: sense of impending doom Other Symptoms: palpitations Treatments Prior to Arrival: none - Related Data Home Medications Medication Instructions Recorded Confirmed Atorvastatin [Lipitor] 80 mg PO DAILY@0500 05/21/23 03/30/25 Isosorbide Mononitrate ER [Imdur] 60 mg PO DAILY@0500 05/21/23 03/30/25 Aspirin 81 mg PO DAILY@0500 02/26/25 03/30/25 Furosemide [Lasix] 20 mg PO DAILY@0500 02/26/25 03/30/25 Losartan Potassium [Cozaar] 100 mg PO DAILY@0500 02/26/25 03/30/25 Apixaban [Eliquis] 5 mg PO BID@0500,1600 03/15/25 03/30/25 Metoprolol Tartrate [Lopressor] 50 mg PO BID@0500,1600 03/15/25 03/30/25 Nitroglycerin Sl Tabs [Nitrostat] 0.4 mg SL Q5M PRN 03/15/25 03/30/25 Previous Rx's Medication Instructions Recorded Amiodarone [Cordarone] 400 mg PO BID #180 tab 04/02/25 Allergies Allergy/AdvReac Type Severity Reaction Status Date / Time No Known Allergies Allergy Verified 03/30/25 07:24 Review of Systems ROS Statement: Those systems with pertinent positive or pertinent negative responses have been documented in the HPI. ROS Other: All systems not noted in ROS Statement are negative. EKG Findings - EKG Comments: EKG Findings:: EKG is A-fib 117 QRS 131 QTc 434 - EKG Results: EKG shows: atrial fibrillation Past Medical History Past Medical History: Atrial Fibrillation, Chest Pain / Angina, Hypertension, Myocardial Infarction ([place]) Last Myocardial Infarction Date:: 2022 History of Any Multi-Drug Resistant Organisms: None Reported Past Surgical History: Cholecystectomy, Heart Catheterization, Hysterectomy, Tonsillectomy Additional Past Surgical History / Comment(s): Heart catheterization with 5 st ents 12/08/22 Past Anesthesia/Blood Transfusion Reactions: No Reported Reaction Past Psychological History: No Psychological Hx Reported Smoking Status: Never smoker - Past Family History Brother(s) Family Medical History: AFIB, CVA/TIA Mother Family Medical History: Coronary Artery Disease (CAD) Additional Family Medical History / Comment(s): CABG in 70's General Exam General appearance: alert, in no apparent distress, anxious Head exam: Present: atraumatic, normocephalic, normal inspection Eye exam: Present: normal appearance, PERRL, EOMI. Absent: scleral icterus, conjunctival injection, periorbital swelling ENT exam: Present: normal exam, mucous membranes moist Neck exam: Present: normal inspection. Absent: tenderness, meningismus, lymphadenopathy Respiratory exam: Present: normal lung sounds bilaterally. Absent: respiratory distress, wheezes, rales, rhonchi, stridor Cardiovascular Exam: Present: tachycardia, irregular rhythm, normal heart sounds. Absent: systolic murmur, diastolic murmur, rubs, gallop, clicks GI/Abdominal exam: Present: soft, normal bowel sounds. Absent: distended, tenderness, guarding, rebound, rigid Extremities exam: Present: normal inspection, full ROM, normal capillary refill. Absent: tenderness, pedal edema, joint swelling, calf tenderness Back exam: Present: normal inspection Neurological exam: Present: alert, oriented X3, CN II-XII intact Psychiatric exam: Present: normal affect, normal mood Skin exam: Present: warm, dry, intact, normal color. Absent: rash Course Vital Signs 03/29/25 03/29/25 03/30/25 23:43 23:59 00:05 Temperature 98.7 F Pulse Rate 122 H 131 H 128 H Pulse Rate [ Pulse Oximetery ] Respiratory 18 20 20 Rate Blood Pressure 149/106 116/83 102/73 Blood Pressure [Left Arm] O2 Sat by Pulse 99 96 95 Oximetry 04/29/25 04/29/25 04/29/25 00:20 00:30 00:35 Temperature Pulse Rate 96 87 93 Pulse Rate [ Pulse Oximetery ] Respiratory 18 16 18 Rate Blood Pressure 104/78 100/70 119/80 Blood Pressure [Left Arm] O2 Sat by Pulse 95 96 95 Oximetry 03/30/25 03/30/25 03/30/25 00:40 01:00 01:20 Temperature Pulse Rate 92 86 97 Pulse Rate [ Pulse Oximetery ] Respiratory 16 16 18 Rate Blood Pressure 98/78 107/71 98/79 Blood Pressure [Left Arm] O2 Sat by Pulse 95 96 95 Oximetry 03/30/25 03/30/25 03/30/25 02:00 03:00 03:10 Temperature Pulse Rate 111 H 101 H 102 H Pulse Rate [ Pulse Oximetery ] Respiratory 18 19 16 Rate Blood Pressure 96/68 94/76 101/62 Blood Pressure [Left Arm] O2 Sat by Pulse 95 92 L 95 Oximetry 03/30/25 03/30/25 03/30/25 04:00 05:00 05:14 Temperature Pulse Rate 91 92 90 Pulse Rate [ Pulse Oximetery ] Respiratory 19 16 16 Rate Blood Pressure 108/72 89/55 90/64 Blood Pressure [Left Arm] O2 Sat by Pulse 93 L 93 L 94 L Oximetry 03/30/25 03/30/25 03/30/25 06:00 06:25 07:00 Temperature Pulse Rate 104 H 79 64 Pulse Rate [ Pulse Oximetery ] Respiratory 14 16 16 Rate Blood Pressure 90/64 99/66 Blood Pressure [Left Arm] O2 Sat by Pulse 95 94 L 93 L Oximetry 03/30/25 03/30/25 03/30/25 07:24 08:00 08:57 Temperature Pulse Rate 73 65 70 Pulse Rate [ Pulse Oximetery ] Respiratory 20 16 Rate Blood Pressure 111/76 Blood Pressure [Left Arm] O2 Sat by Pulse Oximetry 03/30/25 03/30/25 03/30/25 09:00 10:00 11:00 Temperature Pulse Rate 59 L 71 62 Pulse Rate [ Pulse Oximetery ] Respiratory 14 35 H 17 Rate Blood Pressure 102/54 113/76 123/70 Blood Pressure [Left Arm] O2 Sat by Pulse Oximetry 03/30/25 03/30/25 03/30/25 11:51 12:00 12:34 Temperature 98.3 F Pulse Rate 61 59 L 62 Pulse Rate [ Pulse Oximetery ] Respiratory 18 16 18 Rate Blood Pressure 101/59 101/59 119/73 Blood Pressure [Left Arm] O2 Sat by Pulse 98 96 97 Oximetry 03/30/25 03/30/25 03/30/25 13:00 14:00 15:00 Temperature Pulse Rate 58 L 59 L 62 Pulse Rate [ Pulse Oximetery ] Respiratory 19 18 18 Rate Blood Pressure 119/73 114/59 118/69 Blood Pressure [Left Arm] O2 Sat by Pulse 96 95 94 L Oximetry 03/30/25 03/30/25 03/30/25 16:00 17:00 18:00 Temperature Pulse Rate 62 65 67 Pulse Rate [ Pulse Oximetery ] Respiratory 14 16 18 Rate Blood Pressure 120/74 127/73 128/70 Blood Pressure [Left Arm] O2 Sat by Pulse 96 97 97 Oximetry 03/30/25 03/30/25 20:00 20:38 Temperature 98.1 F Pulse Rate 54 L Pulse Rate [ 62 Pulse Oximetery ] Respiratory 20 16 Rate Blood Pressure 118/71 Blood Pressure 147/92 [Left Arm] O2 Sat by Pulse 96 98 Oximetry - Reevaluation(s) Reevaluation #1: 03/30/25 00:40 Medical records reviewed Reevaluation #2: 03/30/25 00:40 Heart is improved mildly here in the ER Reevaluation #3: 03/30/25 00:40 Patient informed of results and questions answered Reevaluation #4: Was pt. sent in by a medical professional or institution (, PA, [employer], urgent care, hospital, or fci...) When possible be specific @ -no Did you speak to anyone other than the patient for history (EMS, parent, family, police, friend...)? What history was obtained from this source @ -no Did you review nursing and triage notes (agree or disagree)? Why? @ -agree Are old charts reviewed (outside hosp., previous admission, EMS record, old EKG, old radiological studies, urgent care reports/EKG's, fci records)? Report findings @ -yes Differential Diagnosis (chest pain, altered mental status, abdominal pain women, abdominal pain men, vaginal bleeding, weakness, fever, dyspnea, syncope, headache, dizziness, GI bleed, back pain, seizure, CVA, palpatations, mental health, musculoskeletal)? @ -prior EKG interpreted by me (3pts min.). @ -yes X-rays interpreted by me (1pt min.). @ -yes negative for acute disease CT interpreted by me (1pt min.). @ -no U/S interpreted by me (1pt. min.). @ -no What testing was considered but not performed or refused? (CT, X-rays, U/S, labs)? Why? @ -none What meds were considered but not given or refused? Why? @ -none Did you discuss the management of the patient with other professionals (professionals i.e. , PA, [employer], lab, RT, psych nurse, social media content manager, supervisor lime, teacher, corporate trust officer, rn field case manager)? Give summary @ -no Was smoking cessation discussed for >3mins.? @ -no Was critical care preformed (if so, how long)? @ -yes31 Were there social determinants of health that impacted care today? How? (Homelessness, low income, unemployed, alcoholism, drug addiction, transportation, low edu. Level, literacy, decrease access to med. care, intermediate, rehab)? @ -none Was there de-escalation of care discussed even if they declined (Discuss DNR or withdrawal of care, Hospice)? DNR status @ -no What co-morbidities impacted this encounter? (DM, HTN, Smoking, COPD, CAD, Cancer, CVA, ARF, Chemo, Hep., AIDS, mental health diagnosis, sleep apnea, morbid obesity)? @ -none Was patient admitted / discharged? Hospital course, mention meds given and route, prescriptions, significant lab abnormalities, going to OR and other pertinent info. @ - 60 female will be admitted for A-fib with RVR and chest pain admitted Undiagnosed new problem with uncertain prognosis? @ -no Drug Therapy requiring intensive monitoring for toxicity (Heparin, Nitro, Insulin, Cardizem)? @ -no Were any procedures done? @ -no Diagnosis/symptom? @ -Chest pain and A-fib with RVR Acute, or Chronic, or Acute on Chronic? @ -Acute Uncomplicated (without systemic symptoms) or Complicated (systemic symptoms)? @ -Complicated Side effects of treatment? @ -no Exacerbation, Progression, or Severe Exacerbation? @ -exacerbation Poses a threat to life or bodily function? How? (Chest pain, [place], [place], pneumonia, PE, COPD, DKA, ARF, appy, cholecystitis, CVA, Diverticulitis, Homicidal, Suicidal, threat to staff... and all critical care pts) @ -yes with chest pain and arrhythmia Reevaluation #5: Differential Chest Pain: Stable Angina, Unstable Angina, STEMI, NSTEMI Aortic Dissection, Pneumothorax, Musculoskeletal, Esophageal Spasm GERD, Cholecystitis, Pancreatitis, Zoster, this is not meant to be an all-inclusive list. Differential Palpitations Ventricular arrhythmias, atrial arrhythmias, myocardial infarction, anemia, thyrotoxicosis, electrolyte imbalance, hypokalemia, pulmonary embolism, pulmonary disease, drugs, alcohol, anxiety, stress.... This is not meant to be an all-inclusive list. - Consultations Consultation #1: Spoke with Dr. Lockett who agrees to admit this patient Chest Pain MDM - MDM 60 female will be admitted for A-fib with RVR and chest pain Critical Care Time Critical Care Time: Yes Total Critical Care Time: 31 Disposition Clinical Impression: Chest pain, Atrial fibrillation with rapid ventricular response, CAD (coronary artery disease) Disposition: ADMITTED IP TO THIS HOSP Condition: Serious Is patient prescribed a controlled substance at d/c from ED?: No Time of Disposition: 00:40
[2025-03-29] MEDS: MORPHINE SULFATE 4 MG/ML SYRINGE IV STA (23:53)
[2025-03-29] MEDS: SODIUM CHLORIDE 0.9% 1,000 ML IV SCH (23:53)
[2025-03-29] MEDS: MAGNESIUM SULFATE-D5W PMX 1 GM in DEXTROSE/WATER 1 100ML.BAG IVPB ONE (23:53)
[2025-03-29] MEDS: ONDANSETRON 4 MG/2 ML VIAL IVP STA (23:53)
[2025-03-29] MEDS: METOPROLOL TARTRATE 5 MG/5 ML VIAL IVP STA (23:54)
[2025-03-30 00:01] LABS: Basophils # (A) 0.08 10*3/uL (0.00-0.10); Eosinophils # (A) 0.18 10*3/uL (0.04-0.35); Eosinophils % (A) 2.3 %; HCT 43.1 % (37.2-46.3); HGB 14.9 g/dL (12.0-15.0); Lymphocytes # (A) 3.05 10*3/uL (0.90-5.00); Lymphocytes % (A) 39.1 %; MCH 31.6 pg (27.0-32.0); MCHC 34.6 g/dL (32.0-37.0); MCV 91.3 fL (80.0-97.0); Mean Platelet Volume 11.5 fL (9.5-12.2); Monocytes # (A) 0.74 10*3/uL (0.20-1.00); Monocytes % (A) 9.5 %; Neutrophils # (A) 3.74 10*3/uL (1.80-7.70); Neutrophils % (A) 47.8 %; Platelet Count 241 10*3/uL (140-440); RBC 4.72 10*6/uL (4.10-5.20); RDW 11.9 % (11.5-14.5); WBC 7.81 10*3/uL (4.50-10.00)
[2025-03-30 00:12] LABS: INR 1.1 (<1.2); Partial Thromboplastin Time 26.6 sec (22.0-30.0); Prothrombin Time 11.8 sec (10.0-12.5)
[2025-03-30 00:13] LABS: ALT 37 U/L (4-34); AST 30 U/L (14-36); African American GFR (CKD) 54 (>60 ml/min/1.73 sqM); Albumin 4.7 g/dL (3.5-5.0); Alcohol <10 mg/dL; Alkaline Phosphatase 88 U/L (38-126); Anion Gap 13 mmol/L; Blood Urea Nitrogen 32 mg/dL (7-17); Calcium 9.6 mg/dL (8.4-10.2); Carbon Dioxide 21 mmol/L (22-30); Chloride 104 mmol/L (98-107); Glucose 98 mg/dL (74-99); Magnesium 1.8 mg/dL (1.6-2.3); Non-African American GFR(CKD) 47 (>60 ml/min/1.73 sqM); Phosphorus 4.1 mg/dL (2.5-4.5); Potassium 3.6 mmol/L (3.5-5.1); Sodium 138 mmol/L (137-145); Total Bilirubin 2.1 mg/dL (0.2-1.3); Total Protein 7.8 g/dL (6.3-8.2)
[2025-03-30] MEDS: DILTIAZEM 5 MG/ML 5 ML VIAL IVP STA (00:14)
[2025-03-30 00:22] LABS: NT-Pro-B-Type Natriuretic Pept 118 pg/mL
[2025-03-30] MEDS ORDERED: NALOXONE 0.4 MG/ML 1 ML VIAL IV PRN (00:38)
[2025-03-30] MEDS ORDERED: ONDANSETRON 4 MG/2 ML VIAL IVP PRN (00:38)
[2025-03-30] MEDS ORDERED: MORPHINE SULFATE 4 MG/ML SYRINGE IV PRN (00:38)
--- NOTE | 2025-03-30 00:40 | XR ---
EXAM: XR Chest, 1 View CLINICAL HISTORY: Patient coming with complaints of chest pains that started several hours ago. Patient has hx of afib RVR TECHNIQUE: Frontal view of the chest. COMPARISON: 02/25/25 FINDINGS: Lungs: Unremarkable. No consolidation. Pleural space: Unremarkable. Mediastinum: Unremarkable. Normal mediastinal contour. Bones/joints: No acute findings. IMPRESSION: No acute findings.
[2025-03-30] MEDS: SODIUM CHLORIDE 0.9% 1,000 ML IV SCH (00:45)
[2025-03-30] MEDS: niCARdipine 20 MG in SODIUM CHLORIDE 0.9% 192 ML IV SCH (00:54)
[2025-03-30] MEDS: DILTIAZEM 125 MG in DEXTROSE 5% IN WATER 100 ML IV SCH (01:22)
[2025-03-30] MEDS ORDERED: NITROGLYCERIN SL TABS 0.4 MG TAB SUBLINGUAL PRN (10:54)
[2025-03-30] MEDS: APIXABAN 5 MG TAB PO SCH (18:09)
[2025-03-30] MEDS: METOPROLOL TARTRATE 50 MG TAB PO SCH (18:11)
--- NOTE | 2025-03-31 02:48 | HP ---
HISTORY AND PHYSICAL CHIEF COMPLAINT: Chest pain and rapid heart beating. HISTORY OF PRESENT ILLNESS: This is another recent admission for this 60-year-old female. She just went home last week after another episode of chest pain. She does have coronary artery disease. Apparently, she woke up with chest discomfort and rapid heart beating and came to the emergency room, where her blood pressure is elevated and her pulse is 131 with atrial fibrillation. She was started on Cardizem drip. REVIEW OF SYSTEMS: She has had no neurologic problems, shortness of breath, nausea, vomiting, diarrhea, melena, etc. Past medical history, family history, personal and social histories reveal she is not allergic to any medication. MEDICATIONS: She has been on, 1. Isosorbide. 2. Aspirin. 3. Eliquis. 4. Furosemide. 5. Atorvastatin. 6. Losartan. 7. Metoprolol. SOCIAL HISTORY: She has never been a smoker. Remainder of her history is unremarkable. PHYSICAL EXAMINATION: VITAL SIGNS: Blood pressure is 149/106 with a pulse of 131. GENERAL: She appeared to be slightly uncomfortable. SKIN: Dry. HEAD, EARS, EYES, NOSE, MOUTH, AND THROAT: Normal. NECK: Neck veins are not distended. Thyroid is not enlarged. CHEST: Demonstrates decreased breath sounds at the bases with rales. CARDIAC: Demonstrates atrial fibrillation. ABDOMEN: Soft, nontender. EXTREMITIES: Normal. NEUROLOGIC: She is intact. ASSESSMENT: She is admitted to the hospital with diagnoses of, 1. Atrial fibrillation with rapid ventricular response. 2. Chest pain. 3. History of coronary artery disease. 4. Hypertension. 5. Chronic kidney disease with GFR 47. PLAN: 1. Bed rest. 2. IV fluids. 3. Consult with Cardiology. 4. Cardioversion. MMODL / IJN: [id number] /
[2025-03-31] MEDS: ASPIRIN 81 MG PO SCH (04:32)
[2025-03-31] MEDS: LOSARTAN 50 MG TAB PO SCH (04:32)
[2025-03-31] MEDS: ATORVASTATIN 80 MG TAB PO SCH (04:32)
[2025-03-31] MEDS: ISOSORBIDE MONONITRATE ER 60 MG TAB.ER.24H PO SCH (04:32)
[2025-03-31] MEDS: FUROSEMIDE 20 MG TAB PO SCH (04:32)
--- NOTE | 2025-04-01 03:40 | PN ---
PROGRESS NOTE DATE OF SERVICE: 03/31/2025 CHIEF COMPLAINT: Chest pain and atrial fibrillation. HISTORY OF PRESENT ILLNESS: This lady is suddenly complaining again of left anterior chest pain and aching in the jaw, and tingling in the left arm. She is not diaphoretic. PHYSICAL EXAMINATION: VITAL SIGNS: Normal. GENERAL: She looks normal. CHEST: Clear. CARDIAC: Normal. IMPRESSION: 1. Chest pain. 2. History of coronary artery disease. PLAN: 1. EKG and troponin. 2. Continue with followup on telemetry with Cardiology. MMODL / IJN: [id number] /
[2025-04-01] MEDS: AMIODARONE 200 MG TAB PO SCH (08:51)
[2025-04-01 09:07] LABS: Basophils # (A) 0.05 10*3/uL (0.00-0.10); Basophils % (A) 1.1 %; Eosinophils # (A) 0.13 10*3/uL (0.04-0.35); Eosinophils % (A) 2.9 %; HCT 41.1 % (37.2-46.3); HGB 13.7 g/dL (12.0-15.0); Lymphocytes # (A) 1.42 10*3/uL (0.90-5.00); Lymphocytes % (A) 31.5 %; MCHC 33.3 g/dL (32.0-37.0); Mean Platelet Volume 11.6 fL (9.5-12.2); Monocytes # (A) 0.35 10*3/uL (0.20-1.00); Monocytes % (A) 7.8 %; Neutrophils # (A) 2.55 10*3/uL (1.80-7.70); Neutrophils % (A) 56.5 %; Platelet Count 213 10*3/uL (140-440); RBC 4.42 10*6/uL (4.10-5.20); RDW 12.2 % (11.5-14.5); WBC 4.51 10*3/uL (4.50-10.00)
[2025-04-01 09:24] LABS: INR 1.1 (<1.2)
[2025-04-01 09:25] LABS: Partial Thromboplastin Time 26.6 sec (22.0-30.0); Prothrombin Time 12.1 sec (10.0-12.5)
[2025-04-01] MEDS ORDERED: ALPRAZolam 0.25 MG TAB PO PRN (11:24)
[2025-04-01] MEDS ORDERED: ALPRAZolam 0.5 MG TAB PO PRN (11:24)
[2025-04-01] MEDS ORDERED: NITROGLYCERIN SL TABS 0.4 MG TAB SUBLINGUAL PRN (11:24)
--- NOTE | 2025-04-01 11:31 | P.CRDCN ---
History of Present Illness History of present illness: HISTORY OF PRESENT ILLNESS: This is a 60-year-old female with a past medical history significant for coronary artery disease, atrial fibrillation, hyperlipidemia, and hypertension. patient follows in the office with Dr. Israel. We have been asked to see the patient in consultation for A-fib and CAD. Patient examined at the bedside. Patient initially presented to the hospital with a chief complaint of chest pain and jaw pain. She also reports feeling nauseated. She states that she took a nitro and then got up to go to the bathroom and started to have blurry vision and arm shaking. Patient presented to the hospital for further evaluation. Patient was found to be in A-fib with RVR. She has since converted to sinus mechanism and is maintaining sinus mechanism this morning. At the time of examination she denies any chest pain or shortness of breath. DIAGNOSTICS: - EKG reveals A-fib with RVR. Repeat EKG reveals sinus mechanism.. - Chest xray negative for acute findings - Laboratory data: WBC 4.51. Hemoglobin 13.7. Platelet count 213. Sodium 138. Potassium 3.6. BUN 32. Creatinine 1.25. Troponin negative x 4. TSH 6.850. - Current home cardiac medications include Eliquis 5mg BID, aspirin 81mg daily, Lipitor 80 mg daily, Lasix 20 mg daily, Imdur 60 mg daily, losartan 100 mg daily - Most recent echocardiogram obtained in the office in January 2025 revealed ej ection fraction 55%, mild MR, mild TR -Patient underwent stress echocardiogram in January 2025 which was negative for ischemia - Cardiac catheterization history: December 2022 with stenting of the OM1 REVIEW OF SYSTEMS: At the time of my exam: CONSTITUTIONAL: Denies fever or chills. HEENT: Denies blurred vision, vision changes, or eye pain. Denies hemoptysis CARDIOVASCULAR: Denies chest pain. Denies orthopnea. Denies PND. Denies palpitations RESPIRATORY: Denies shortness of breath. GASTROINTESTINAL: Denies abdominal pain. Denies nausea or vomiting. HEMATOLOGIC: Denies bleeding disorders. GENITOURINARY: Denies any blood in urine. SKIN: Denies pruitis. Denies rash. PHYSICAL EXAM: VITAL SIGNS: Reviewed. GENERAL: Well-developed in no acute distress. HEENT: Head is normocephalic. Pupils are equal, round. Sclerae anicteric. Mucous membranes of the mouth are moist. Neck supple. No JVD or thyromegaly LUNGS: Respirations even and unlabored. Lungs essentially clear to auscultation bilaterally. HEART: Regular rate and rhythm. S1 and S2 heard. ABDOMEN: Soft. Nondistended. Nontender. EXTREMITIES: Normal range of motion. No clubbing or cyanosis. Peripheral pulses intact. No lower extremity edema NEUROLOGIC: Awake and alert. Oriented x 3. ASSESSMENT: Chest pain Coronary artery disease with previous stenting Paroxysmal atrial fibrillation with RVR, currently maintaining sinus mechanism Hypertension Hyperlipidemia Obesity: BMI 38.0 PLAN: No need to repeat echocardiogram as this was performed in the office in January 2025 Hold Eliquis. Begin IV heparin Continue current cardiac medications Continue metoprolol tartrate 50 mg twice a day Add oral amiodarone 400 mg twice a day N.p.o. at midnight Patient to undergo cardiac catheterization tomorrow with Dr. Israel Further recommendations pending patient course Nurse practitioner note has been reviewed by physician. Signing provider agrees with the documented findings, assessment, and plan of care documented by MAGNETIC TESTING TECHNICIAN as a scribe. Past Medical History Past Medical History: Atrial Fibrillation, Chest Pain / Angina, Hypertension, Myocardial Infarction ([place]) Last Myocardial Infarction Date:: 2022 History of Any Multi-Drug Resistant Organisms: None Reported Past Surgical History: Cholecystectomy, Heart Catheterization, Hysterectomy, Tonsillectomy Additional Past Surgical History / Comment(s): Heart catheterization with 5 stents 12/08/22, PARTIAL HYSTERECTOMY Past Anesthesia/Blood Transfusion Reactions: No Reported Reaction Past Psychological History: No Psychological Hx Reported Smoking Status: Never smoker Past Alcohol Use History: None Reported Past Drug Use History: None Reported - Past Family History Brother(s) Family Medical History: AFIB, CVA/TIA Mother Family Medical History: Coronary Artery Disease (CAD) Additional Family Medical History / Comment(s): CABG in Medications and Allergies Home Medications Medication Instructions Recorded Confirmed Type Atorvastatin [Lipitor] 80 mg PO DAILY@49905/21/23 03/30/25 History Isosorbide Mononitrate ER [Imdur] 60 mg PO DAILY@49905/21/23 03/30/25 History Aspirin 81 mg PO DAILY@49902/26/25 03/30/25 History Furosemide [Lasix] 20 mg PO DAILY@49902/26/2503/30/25 History Losartan Potassium [Cozaar] 100 mg PO DAILY@0500 02/26/25 03/30/25 History Apixaban [Eliquis] 5 mg PO BID@0500,1600 03/15/25 03/30/25 History Metoprolol Tartrate [Lopressor] 50 mg PO BID@0500,1600 03/15/25 03/30/25 History Nitroglycerin Sl Tabs [Nitrostat] 0.4 mg SL Q5M PRN 03/15/25 03/30/25 History Allergies Allergy/AdvReac Type Severity Reaction Status Date / Time No Known Allergies Allergy Verified 03/30/25 07:24 Physical Exam Vitals: Vital Signs Temp Pulse Resp BP Pulse Ox FiO2 04/01/25 08:42 96 21 04/01/25 08:00 97.6 F 56 L 18 128/77 97 04/01/25 04:00 98.4 F 66 19 143/79 95 04/01/25 00:00 98.4 F 70 19 135/80 94 L 03/31/25 20:00 98.4 F 59 L 19 120/63 97 03/31/25 16:00 98.7 F 70 16 148/93 96 03/31/25 12:00 98 F 59 L 16 136/79 97 Intake and Output 03/31/25 04/01/25 04/01/25 22:59 06:59 14:59 Intake Total 240 180 Balance 240 180 Intake: Oral 240 180 Other: Voiding Method Toilet Toilet Toilet # Voids 1 2 1 Weight 103.5 kg Results 04/01/25 08:40 03/29/25 23:39 Cardiac Enzymes 03/31/25 Range/Units 11:18 Troponin I <0.012 (0.000-0.034) ng/mL Coagulation 04/01/25 Range/Units 08:40 PT 12.1 (10.0-12.5) sec APTT 26.6 (22.0-30.0) sec CBC 04/01/25 Range/Units 08:40 WBC 4.51 (4.50-10.00) 10*3/uL RBC 4.42 (4.10-5.20) 10*6/uL Hgb 13.7 (12.0-15.0) g/dL Hct 41.1 (37.2-46.3) % Plt Count 213 (140-440) 10*3/uL Current Medications Generic Name Dose Route Start Last Admin Trade Name Nedq PRN Reason Stop Dose Admin Amiodarone HCl 400 mg 04/01/25 09:00 04/01/25 08:51 Amiodarone 200 Mg Tab PO 400 mg BID ELIZABETH Administration Aspirin 81 mg 03/31/25 05:00 04/01/25 05:27 Aspirin 81 Mg PO 81 mg DAILY@050 ELIZABETH Administration Atorvastatin Calcium 80 mg 03/31/25 05:00 04/01/25 05:27 Atorvastatin 80 Mg Tab PO 80 mg DAILY@050 ELIZABETH Administration Furosemide 20 mg 03/31/25 05:00 04/01/25 05:27 Furosemide 20 Mg Tab PO 20 mg DAILY@050 ELIZABETH Administration Heparin Sodium (Porcine) 0 unit 04/01/25 17:00 Heparin Sodium 1,000 Un/Ml (10ml Vl) IV PER PROTOCOL PRN Low PTT Protocol Sodium Chloride 1,000 mls @ 75 mls/hr 03/30/25 00:45 04/01/25 05:29 Saline 0.9% IV 75 mls/hr .[id number] ELIZABETH Administration Heparin Sodium/Sodium Chloride 250 mls @ 10 mls/hr 04/01/25 17:00 25,000 unit/ Sodium Chloride IV .Q24H ELIZABETH Protocol 9.662 UNITS/KG/HR Isosorbide Mononitrate 60 mg 03/31/25 05:00 04/01/25 05:27 Isosorbide Mononitrate Er 60 Mg Tab.Er.24h PO 60 mg DAILY@050 ELIZABETH Administration Losartan Potassium 100 mg 03/31/25 05:00 04/01/25 05:27 Losartan 50 Mg Tab PO 100 mg DAILY@050 ELIZABETH Administration Metoprolol Tartrate 50 mg 03/30/25 16:00 04/01/25 05:27 Metoprolol Tartrate 50 Mg Tab PO 50 mg BID@0500,1600 ELIZABETH Administration Morphine Sulfate 4 mg 03/30/25 00:38 Morphine Sulfate 4 Mg/Ml Syringe IV Q4HR PRN Severe Pain (Scale 7 to 10) Naloxone HCl 0.2 mg 03/30/25 00:38 Naloxone 0.4 Mg/Ml 1 Ml Vial IV Q2M PRN Opioid Reversal Nitroglycerin 0.4 mg 03/30/25 10:54 Nitroglycerin Sl Tabs 0.4 Mg Tab SUBLINGUAL Q5M PRN Chest Pain Ondansetron HCl 4 mg 03/30/25 00:38 Ondansetron 4 Mg/2 Ml Vial IVP Q8HR PRN Nausea And Vomiting Intake and Output 03/31/25 04/01/25 04/01/25 22:59 06:59 14:59 Intake Total 240 180 Balance 240 180 Intake: Oral 240 180 Other: Voiding Method Toilet Toilet Toilet # Voids 1 2 1 Weight 103.5 kg 04/01/25 08:40 03/29/25 23:39
[2025-04-01] MEDS: HEPARIN SOD,PORK IN 0.45% NACL 25,000 UNIT in 0.45% NACL 1 250ML.BAG IV SCH (16:22)
[2025-04-02] MEDS: HEPARIN SODIUM 1,000 UN/ML (10ML VL) IV PRN (00:19)
[2025-04-02] MEDS: SODIUM CHLORIDE 0.9% 1,000 ML in EMPTY BAG 1 BAG IV SCH (00:22)
[2025-04-02] MEDS: ATORVASTATIN 80 MG TAB PO ONE (05:03)
[2025-04-02] MEDS: ASPIRIN 325 MG TAB PO ONE (05:04)
[2025-04-02 06:49] LABS: Basophils # (A) 0.04 10*3/uL (0.00-0.10); Basophils % (A) 0.8 %; Eosinophils # (A) 0.16 10*3/uL (0.04-0.35); Eosinophils % (A) 3.1 %; HCT 37.8 % (37.2-46.3); HGB 12.6 g/dL (12.0-15.0); Lymphocytes # (A) 1.95 10*3/uL (0.90-5.00); Lymphocytes % (A) 37.8 %; MCHC 33.3 g/dL (32.0-37.0); MCV 92.9 fL (80.0-97.0); Mean Platelet Volume 12.2 fL (9.5-12.2); Monocytes # (A) 0.36 10*3/uL (0.20-1.00); Neutrophils # (A) 2.64 10*3/uL (1.80-7.70); Neutrophils % (A) 51.1 %; Platelet Count 197 10*3/uL (140-440); RBC 4.07 10*6/uL (4.10-5.20); RDW 12.3 % (11.5-14.5); WBC 5.16 10*3/uL (4.50-10.00)
[2025-04-02 06:59] LABS: INR 1.1 (<1.2); Prothrombin Time 11.8 sec (10.0-12.5)
[2025-04-02] MEDS: IV FLUID CONTINUATION 300 ML IV ONE (09:52)
[2025-04-02] MEDS: HEPARIN SODIUM,PORCINE 10,000 UNIT in SODIUM CHLORIDE 0.9% 1,000 ML IRRIGATION PRN (09:53)
[2025-04-02] MEDS: HEPARIN SODIUM,PORCINE (1 ML) 2,500 UNIT in SODIUM CHLORIDE 0.9% 250 ML IRRIGATION PRN (09:53)
[2025-04-02] MEDS: fentaNYL (PF) 50 MCG/ML 2 ML AMP IVP ONE (10:20)
[2025-04-02] MEDS: MIDAZOLAM 2 MG/2 ML VIAL IVP ONE (10:20)
[2025-04-02] MEDS: LIDOCAINE 1% INJ 10MG/ML (20 ML MDV) SQ ONE (10:21)
[2025-04-02] MEDS: HEPARIN SODIUM 1,000 UN/ML (10ML VL) IVP ONE (10:24)
[2025-04-02] MEDS: IOPAMIDOL-370 100ML BTL INJ ONE (10:31)
[2025-04-02] MEDS: SODIUM CHLORIDE 0.9% 1,000 ML IV SCH (10:45)
[2025-04-02] MEDS ORDERED: RX INFO: IV CONTRAST WAS GIVEN 1 EACH MISC MISCELLANE PRN (10:48)
--- NOTE | 2025-04-02 10:51 | PN ---
PROGRESS NOTE DATE OF SERVICE: 04/01/2025 CHIEF COMPLAINT: New onset atrial fibrillation with RVR and chest pain. HISTORY OF PRESENT ILLNESS: This lady states that she is still not feeling well and still has some chest discomfort. She is going for cardiac cath. PHYSICAL EXAMINATION: VITAL SIGNS: Normal. CHEST: Clear. CARDIAC: Normal. ABDOMEN: Soft, nontender. IMPRESSION: 1. New onset atrial fibrillation with rapid ventricular response. 2. History of coronary artery disease. 3. History of hypertension. 4. Chest pain. PLAN: Cardiac cath today. MMODL / IJN: [id number] /
--- NOTE | 2025-04-02 13:49 | CC ---
CARDIAC CATHETERIZATION REPORT INDICATION: Unstable angina. PROCEDURE NOTE: After obtaining informed consent, left heart catheterization and coronary angiogram were performed via the right radial artery using standard Modesta catheters. The patient tolerated the procedure well without any obvious immediate complications. A TR band will be used for hemostasis. Right radial artery access was obtained using Seldinger technique. A 6-Yoruba sheath was placed. Catheters and wires were floated into the ascending aorta under fluoroscopic guidance. Total sedation time was 9 minutes. The patient received verapamil and heparin per protocol. FINDINGS: 1. Hemodynamics: Left ventricular end-diastolic pressure is 10 mm. There is no significant gradient across the aortic valve. 2. Left ventriculogram: Left ventriculogram is not performed. 3. Angiographic data: a.Right coronary artery: Right coronary artery is a large dominant vessel and is free of stenosis. b.The left main coronary artery is a normal-sized vessel and is free of disease, divides into left anterior descending coronary artery and circumflex coronary artery. c.LAD and its branches are free of significant stenosis. The previously stented OM branch shows mild nonobstructive disease. CONCLUSIONS: Patent stent within the circ OM without significant disease and rest of the coronaries. PLAN: I reviewed angiographic data with the patient and told her that her management is going to be in the form of risk factor modification and optimal medical therapy. MMODL / IJN: [id number] /
[2025-04-02 17:04] VITALS: BP 156/89; PULSE 63; RESP 14; TEMP 98.7
[2025-04-02] MEDS ORDERED: APIXABAN 5 MG TAB PO SCH (21:00)
--- NOTE | 2025-04-03 00:25 | DS ---
DISCHARGE SUMMARY CHIEF COMPLAINT: Shortness of breath and chest pain. HISTORY OF PRESENT ILLNESS AND PHYSICAL EXAMINATION: Details of this lady's history and physical can be found in the initial workup. LABORATORY STUDIES: While she is in the hospital, she had laboratory studies, details of which can be found in the laboratory section of her chart. COURSE IN THE HOSPITAL: After admission, she was placed on bedrest, started on intravenous fluids and continuous cardiac monitoring. She was seen by Cardiology. She was converted to normal sinus rhythm, and other studies were negative. Her troponins were normal. It was felt that she could be discharged to home on the and she will go home on her usual activity, diet, medication and follow up in the office in several days. FINAL DIAGNOSES: 1. New onset atrial fibrillation with rapid ventricular response. 2. Acute coronary syndrome. 3. History of coronary artery disease. OPERATIONS: None. CONSULTATIONS: Cardiology. She has improved. MMODL / TYRESEN: [id number] /
== END 2025-04-02 18:05 | disposition home or self-care (01) ==
LOC: EC 23:34 → INTOOBSV 03-30 00:38 → 3SCARD 03-30 00:38
PROVIDERS: ADMIT Family Medicine; ATTEND Family Medicine
DX: I48.0 Paroxysmal atrial fibrillation (principal); I25.10 Atherosclerotic heart disease of native coronary artery without angina pectoris; I24.9 Acute ischemic heart disease, unspecified; E78.5 Hyperlipidemia, unspecified; I12.9 Hypertensive chronic kidney disease with stage 1 through stage 4 chronic kidney disease, or unspecified chronic kidney disease; N18.9 Chronic kidney disease, unspecified; I25.2 Old myocardial infarction; E66.9 Obesity, unspecified; Z68.38 Body mass index [BMI] 38.0-38.9, adult; Z95.5 Presence of coronary angioplasty implant and graft; Z79.01 Long term (current) use of anticoagulants; Z79.82 Long term (current) use of aspirin; Z79.899 Other long term (current) drug therapy; Z82.49 Family history of ischemic heart disease and other diseases of the circulatory system
CPT/HCPCS: 96366 ×4; 96367 ×2; 96375 ×3; 96365; 96374; 99291; 36415; 94760; 93005; 93458; 83880; 80053; 83605; 83735; 84100; 84443; 84484 ×3; 85025 ×3; 85610 ×3; 85730 ×3; 80320; 71045; G0378 ×4; C1894; J2250; J2270; J1644 ×4; J2405; J2003; J3010; J3475; Q9967